=== PATIENT | female | born 1990 | race Caucasian/White ===

== ENCOUNTER 2023-12-28 10:55 | Outpatient (OUT) | payer OTHER, SELFPAY ==
--- NOTE | 2023-12-28 11:43 | XR_ITS ---
The [address] [address] Patient Name: TOMI ANTHONY MRN: [id number] date: 1990 Sex: F Assigned Patient Location: [facility] Current Patient Location: [facility] Accession/Order Number: [id number] Exam Date: 12/28/2023 11:48 Report Date: 12/28/2023 15:48 At the request of: LINDY LEE Procedure: XR chest 2V PROCEDURE: XR chest 2V DATE: 12/28/2023 11:48 AM EST COMPARISONS: None. CLINICAL INDICATION: 33 years Female PRE OP FINDINGS: The cardiomediastinal silhouette and pulmonary vasculature are within normal limits. The lungs are clear. There is no evidence of pleural effusion or pneumothorax. XR/XR chest 2V IMPRESSION: Chest radiograph is within normal limits. Electronically authenticated by: EMILY APARICIO Date: 12/28/2023 15:48
== END 2023-12-28 10:56 | disposition home or self-care (01) ==
LOC: PST 10:59
PROVIDERS: PCP Family Medicine; Visit Provider Obstetrics & Gynecology
DX: Z01.810 Encounter for preprocedural cardiovascular examination (principal); D58.9 Hereditary hemolytic anemia, unspecified; N94.6 Dysmenorrhea, unspecified
CPT/HCPCS: 71046

== ENCOUNTER 2024-01-04 09:00 | Day surgery (SDC) | payer OTHER, SELFPAY ==
[2023-12-28 11:48] VITALS: PULSE 70; TEMP 36.4; O2SAT 98
[2024-01-04] VITALS (10 sets, daily range): BP systolic 108–124; BP diastolic 64–78; PULSE 61–73; TEMP 35.4–36.6; O2SAT 96–100; BMI 29.6
[2024-01-04 09:11] LABS: Basophils Percent Auto 0.3 % (0.2-2.0); Eosinophils Absolute Auto 0.1 10^3/uL (0.0-0.7); Hematocrit 41.7 % (36.0-48.0); Hemoglobin 14.1 g/dL (12.0-16.0); Immature Granulocytes Abs Auto 0.01 10^3/uL (0.00-0.03); Immature Granulocytes Pct Auto 0.2 % (0.0-0.5); Lymphocytes Absolute Auto 1.9 10^3/uL (1.2-3.8); Lymphocytes Percent Auto 30.2 % (20.5-60.0); Mean Corpuscular HGB Conc 33.8 g/dL (29.9-35.2); Mean Corpuscular Hemoglobin 28.3 pg (26.7-34.0); Mean Corpuscular Volume 83.6 fL (81.0-99.0); Mean Platelet Volume 7.9 fL (9.5-13.5); Monocytes Absolute Auto 0.3 10^3/uL (0.3-0.8); Monocytes Percent Auto 5.5 % (1.7-12.0); Neutrophils Absolute Auto 3.9 10^3/uL (1.4-6.5); Neutrophils Percent Auto 62.8 % (43.0-75.0); Platelet Count 383 10^3/uL (150-450); Red Blood Count 4.99 10^6/uL (4.20-5.40); White Blood Count 6.2 10^3/uL (4.0-11.0)
--- OUTSIDE RECORDS SUMMARY | 2024-01-04 09:21 | XMS_ITS | CCD ---
Author Organization [facility] Care Team Providers Care Computer Support Analyst Name Role Phone CHERYL HERNANDEZ Admitting Unavailable CHERYL HERNANDEZ Attending Unavailable ROSIBEL BRUNER Primary Care Unavailable CHERYL HERNANDEZ Consulting Unavailable DO Ming Bradford Attending Provider MD Rosibel Bruner Primary Care Provider Sotoad, Imad Unavailable MD Rosibel Loaiza Primary Care Pr ovider MD Sj Villa Attending Provider Rosibel Loaiza Primary Care Un available Asaad, Imad Admitting Unavailable Asaad, Imad Attending Unavailable Rosibel Loaiza Primary Care Un available Asaad, Imad Admitting Unavailable Asaad, Imad Attending Unavailable Rosibel Bruner MD Primary Care Provider Luis Enrique Bhat CNM Unavailable Petra Mariee NP Unavailable PETRA MARIEE Attending UnavailLUIS ENRIQUE العراقي Attending Unavailable LUIS ENRIQUE BHAT Referring Unavailable LINDY BYNUM Attending Unavailable ASHLEE COURTNEY Attending Unavailable LINDY BYNUM Attending Unavailable ROSIBEL BRUNER Primary Care Unavailable Medications Current Medications Medication Drug Class(es) Dates Sig (Normalized) Sig (Original) acetaminophen 500 mg oral tablet (3 sources) Start: 09-28-2021 take 2 tablets by mouth every six hours Acetaminophen (Tylenol Extra Strength) 500 mg Tablet Active 1000 MG PO Q6H September 27, 2021 11:00pm acetaminophen 325 mg / oxyCODONE hydrochloride 5 mg oral tablet (3 sources) Opioid Agonist Start: 10-12-2021 take 2 tablets by mouth every four to six hours Oxycodone-Acetamino phen (Percocet) 5-325 mg tablet Active 2 TAB PO EVERY 4-6 HOURS 12 3 October 12, 2021 Start: 10-12-2021 take 2 tablets by mo [facility] every four to six hours Oxycodone-Acetaminophen (Percocet) 5-325 mg tablet Active 2 TAB PO EVERY 4-6 HOURS 12 3 October 12, 2021 [id number] 200 actuat albuterol 0.09 mg/actuat metered dose inhaler (4 sources) beta2-Adrenergic Agonist albuter ol HFA 90 mcg/act inhaler Inhale 2.5 mg every 6 (six) hours if needed. Active cimetidine 200 mg oral tablet (3 sources) Histamine-2 Receptor Antagonist Start: 09-29-19 Cimetidine Active 200 MG PO As Directed September 27, 2021 11:00pm 1-2x daily citalopram 10 mg oral tablet (5 sources) Serotonin Reuptake Inhibitor Start: 12-13-19 End: 01-12-20 24 take 1 tablet by mouth once daily citalopram (CeleXA) 10 MG tablet Indications: Anxiety, generalized (CMS/HCC) Take 1 tablet (10 mg) by mouth Daily 30 tablet 12/13/2023 01/12/2024 Active [facility] Citalopram Hydrobromide 20 MG 1 tablet Orally Once a day Active desogestrel 0.15 mg / ethinyl estradiol 0.03 mg oral tablet (4 sources) Progestin, Estrogen Start: 12-13-2023 End: 01-12-2024 desogestrel-ethinyl estradiol (Enskyce) 0.15-30 MG-MCG tablet Indications: Menorrhagia with regular cycle , Dysmenorrhea , Uterine leiomyoma, unspecified location Take 1 tablet by mouth Daily 30 tablet 12/13/2023 01/12/2024 Active dicyclomine hydrochloride 20 mg oral tablet (5 sources) Anticholinergic Start: 08-01-2023 take 1 tablet by mouth three times daily as needed dicyclomine (Bentyl) 20 MG tablet Indications: Irritable bowel syndrome with predominant constipation Take 1 tablet (20 mg) by mouth 3 (three) times a day as needed (IBS) 270 tablet 08/01/2023 Active Bentyl Active ethinyl estradiol 0.02 mg / levonorgestrel 0.1 mg oral tablet (5 sources) Progestin, Estrogen, Progestin-containing Intrauterine Device Start: 07-28-2023 End: 12-13-2023 take 0.1-20 tablets by mouth in the morning levonorgestrel-ethinyl estradiol (Aviane) 0.1-20 MG-MCG tablet Indications: Encounter for surveillance of contraceptive pills TAKE 1 TABLET BY MOUTH IN THE MORNING 28 tablet 3 07/28/2023 12/13/2023 Discontinued Start: 09-28-2021 take 1 tablet by reina th once daily at bedtime Levonorgestrel-Ethinyl Estrad (Vienva) 0.1-20 mg-mcg tablet Active 1 TAB PO Daily at bedtime September 27, 2021 11:00pm Start: 09-28-2021 take 1 tablet by reina th once daily at bedtime Levonorgestrel-Ethinyl Estrad (Vienva) 0.1-20 mg-mcg tablet Active 1 TAB PO Daily at bedtime September 28, 2021 12:00am fluticasone propionate 0.05 mg/actuat metered dose nasal spray (7 sources) Corticosteroid Start: 09-28-2021 take 1 spray(s) nasal route once daily Fluticasone Propionate Active 1 SPRAY INTRANASAL Daily September 27, 2021 11:00pm administer into each nostril fluticasone ([employer] Allergy Relief) 50 MCG/ACT nasal spray Flonase Active lansoprazole (1 source) Proton Pump Inhibitor Prevacid Active 24 hr metFORMIN hydrochloride 500 mg extended release oral tablet (4 sources) Biguanide Start: 11-02-19 take 1 tablet by mouth every twenty-four hours at mealtime metFORMIN XR (Glucophage-XR) 500 MG 24 hr tablet Indications: Insulin resistance Take 1 tablet (500 mg) by mouth in the evening. Take with meals Do not crush, chew, or split. 30 tablet 11 11/02/2023 Active omeprazole 40 mg delayed release oral capsule (6 sources) Proton Pump Inhibitor Start: 12-13-19 take 1 capsule by mouth before mealtime omeprazole (PriLOSEC) [address] capsule Indications: Gastroesophageal reflux disease without esophagitis Take 1 capsule (40 mg) by mouth in the morning. Take before meals. Do not crush or chew.. 90 capsule 12/13/2023 Active End: 12-13-2023 take 1 tablet by mouth before mealtime omeprazole OTC (PriLOSEC OTC) 20 MG EC tablet Take 20 mg by mouth in the morning. Take before meals. Do not crush, chew, or split.. 12/13/2023 Discontinued (Dose adjustment) Problems Active Problems Problem Classification Problem Date Documented Da te Episodic/Chronic Abdominal pain (2 sources) Abdominal pain; Translations: [Unspecified abdominal pain] Episodic Asthma (4 sources) Mild intermittent asthma; Translations: [Mild intermittent asthma, uncomplicated] Onset: 4 06-28-2023 Chronic Benign neoplasm of uterus (2 sources) Uterine leiomyoma; Translations: [Leiomyoma of uterus, unspecified] Onset: 4 12-18-2023 Episodic Esophageal disorders (7 sources) Gastroesophageal reflux disease without esophagitis; Translations: [Gastro-esophageal reflux disease without esophagitis] Onset: 4 12-13-2023 Chronic Immunizations and screening for infectious disease (6 sources) Contact with and (suspected) exposure to other viral communicable diseases; Translations: [Patient encounter status] Onset: 0 12-13-2023 Episodic Menstrual disorders (6 sources) Amenorrhea; Translations: [Amenorrhea, unspecified] Onset: 4 06-28-2023 Chronic Nonspecific chest pain (1 source) Chest pain, unspecified; Translations: [Chest pain, unspecified] Onset: 4 Episodic Other gastrointestinal disorders (5 sources) Irritable bowel syndrome characterized by constipation; Translations: [Irritable bowel syndrome with constipation] Onset: 4 06-28-2023 Chronic Other gastrointestinal disorders (2 sources) Irritable bowel syndrome with constipation; Translations: [Irritable bowel syndrome with constipation] Onset: 4 Chronic Other gastrointestinal disorders (1 source) Constipation, unspecified; Translations: [Constipation, unspecified] Onset: 4 Episodic Other gastrointestinal disorders (1 source) Heartburn; Translations: [Heartburn] Onset: 4 Episodic Other gastrointestinal disorders (1 source) Heartburn Onset: 4 Episodic Other upper respiratory disease (4 sources) Allergic rhinitis; Translations: [Allergic rhinitis, unspecified] Onset: 4 06-28-2023 Chronic Unclassified (1 source) CHEST PAIN, ACID REFLUX Onset: 4 Past or Other Problems Problem Classification Problem Date Documented Date Episodic/Chronic Biliary tract disease (7 sources) Biliary calculus; Translations: [Calculus of gallbladder without cholecystitis without obstruction] Onset: 06-28-2023 10-12-2021 Episodic Other upper respiratory infections (4 sources) Viral upper respiratory tract infection; Translations: [Acute upper respiratory infection, unspecified] Onset: 06-28-2023 06-28-2023 Episodic Previous (4 sources) Uterine scar from previous surgery affecting ; Translations: [Maternal care for low transverse scar from previous delivery] Onset: 06-14-2021 06-28-2023 Episodic Results Test Name Value Interpretation Reference Range Facility US PELVIC COMPLETE W/ TVon 0 09-25-2023 US PELVIC COMPLETE W/ TV EXAM: Pelvic Ultrasound, Transabdominal and Transvaginal: REASON FOR EXAM: Irregular bleeding. COMPARISON: None. TECHNIQUE: Grayscale and color Doppler ultrasound of the pelvis performed. Transabdominal and endovaginal ultrasound assessment. FINDINGS: Uterus/Endometrium: The uterus is anteverted and normal in size. The endometrium is not thickened and no fluid is identified in the canal. Ill-defined isoechoic lesion is seen in the anterior myometrium measuring roughly 1.2 x 1.3 x 0.7 cm in size. Cervix: Normal. Ovaries: Normal in size with normal vascularity by Doppler US. The ovaries could only be visualized by transabdominal scanning due to bowel gas. Peritoneum: No free fluid visualized. Measurements: Uterus: 7.70 x 4.72 x 2.98 cm EM: 0.46 cm Right Ovary: 2.43 x 2.24 x 1.57 cm Left Ovary: 1.87 x 1.64 x 1.85 cm IMPRESSION: Ill-defined isoechoic mass in the anterior uterine myometrium, 1.3 x 1.2 x 0.7 cm. This is most likely an incidental leiomyoma. No apparent endometrial thickening. *This report is generated using voice recognition reporting ([employer]). On occasion Power[employer]ribe erroneously drops words from the report or replaces the spoken word with similar sounding words. Please call with any questions/concerns regarding this report.* Dictated and transcribed 09/25/2023/jf This report has been electronically signed and approved by the interpreting radiologist. Electronically Signed Jason Randolph D.O. 2023-09-25 15:57:16 Normal Not Available HCG,Urineon 03-16-2023 Beta HCG ( test) Ql (U) Negative Normal [facility] Comment on above: Result Comment: PERF ORMED BY: [place] [address] PATHOLOGIST OIL PUMP STATION OPERATOR CHIEF DANNY OBRIEN M.D. Performed By: #### U HCG #### [address] Matthew 03-16-2023 L Specimen: [id number] Received: 03/16/23 Status: MARTHA Mead Num: [id number] Spec Type: Surgical Subm Dr: Sj Villa MD Tissues: A Colon Biopsy (RANDOM COLON BX) Procedures: HE/2, Gross/Micro L4 Age/ Patient Sex Location Account Attending Physician AnthonyKimberly / [id number] Sj Villa MD SPEC NUM: [id number] RECD: 03/16/23 STATUS: HUBERTBentley MEAD NUM: [id number] SELENE: 03/16/23- SUBM DR: Sj Villa MD ENTERED: 03/16/[address] [facility] [address]: SPEC TYPE: Surgical DEPT: S ORDERED: HE/2, Gross/Micro L4 ORDERED: HE/2, Gross/Micro L4 Pathological Diagnosis Random colon, biopsies: - Unremarkable colonic mucosa. - Negative for lymphocytic colitis, collagenous colitis and other forms of colitis. Clinical Information Abdominal pain, IBS with constipation, rule out microscopic colitis Gross Description Received in formalin labeled with the patient's name, date of and random colon are 3 garibay soft tissue fragments, 0.3 and 0.4 cm in greatest dimensions. Entirely submitted in one cassette labeled A1. CPT Codes 08803 -------- -------- Specimen: [id number] Received: 03/16/23 Status: MARTHA Kapadiaoseas Num: [id number] Spec Type: Surgical Subm Dr: Sj Villa MD Tissues: A Colon Biopsy (RANDOM COLON BX) Procedures: [place] GRAJEDA/Flavio L4 -------- Patient: Kimberly Anthony [id number] (Continued) -------- Signed (signature on file) Ana Moore MD 03/20/23 1052 [facility] Calprotectin, Fecalon 2023 Calprotectin, Fecal 33 Normal 0-120 [facility] Comment on above: Order Comment: Reaso n for Exam Irritable bowel syndrome with constipation Result Comment: Conc entration Interpretation Follow-Up < 5 - 50 ug/g Normal None >50 -120 ug/g Borderline Re-evaluate in 4-6 weeks >120 ug/g Abnormal Repeat as clinically indicated Performed at: - [facility] [id number] Employee Relation Manager: Charles Villarreal MD, Phone: [phone] PERFORMED BY: [place] [address] PATHOLOGIST OIL PUMP STATION OPERATOR CHIEF DANNY OBRIEN M.D. Performed By: #### T SH3 #### [address] #### CALPROTECT, LC CRP, CELIAC #### [facility] , Celiacon 03-11-2023 Deamidated Gliadin Abs, IgA 8 Normal 0-19 [facility] Comment on above: Order Comment: Reaso n for Exam Irritable bowel syndrome with constipation Result Comment: Nega tive 0 - 19 Weak Positive 20 - 30 Moderate to Strong Positive >30 Performed By: #### T SH3 #### [address] #### CALPROTECT, LC CRP, CELIAC #### [facility] , Deamidated Gliadin Abs, IgG 3 Normal 0-19 [facility] Comment on above: Order Comment: Reaso n for Exam Irritable bowel syndrome with constipation Result Comment: Nega tive 0 - 19 Weak Positive 20 - 30 Moderate to Strong Positive >30 Performed By: #### T SH3 #### [facility] [address] [place] [address] [place] #### CALPROTECT, LC CRP, CELIAC #### [facility] , Endomysial Antibody IgA Negative Normal Negative [facility] Comment on above: Order Comment: Reaso n for Exam Irritable bowel syndrome with constipation Performed By: #### T SH3 #### [address] #### CALPROTECT, LC CRP, CELIAC #### [facility] , Immunoglobulin A, Qn, Serum 133 mg/dL Normal 87-352 [facility] Comment on above: Order Comment: Reaso n for Exam Irritable bowel syndrome with constipation Result Comment: Perf ormed at: [address] [id number] Employee Relation Manager: Brian Maguire PhD, Phone: [phone] Performed By: #### T SH3 #### [address] #### CALPROTECT, LC CRP, CELIAC #### [facility] , T-Transglutaminase (tTG) IgA <2 Normal 0-3 [facility] Comment on above: Order Comment: Reaso n for Exam Irritable bowel syndrome with constipation Result Comment: Nega tive 0 - 3 Weak Positive 4 - 10 Positive >10 Tissue Transglutaminase (tTG) has been identified as the endomysial antigen. Studies have demonstr- ated that endomysial IgA antibodies have over 99% specificity for gluten sensitive enteropathy. Performed By: #### T SH3 #### [address] #### CALPROTECT, LC CRP, CELIAC #### [facility] , T-Transglutaminase (tTG) IgG 3 Normal 0-5 [facility] Comment on above: Order Comment: Reaso n for Exam Irritable bowel syndrome with constipation Result Comment: Nega tive 0 - 5 Weak Positive 6 - 9 Positive >9 Performed By: #### T SH3 #### [place] [address] [place] #### CALPROTECT, LC CRP, CELIAC #### [facility] , Lab Emiliano CRPon 03-11-2023 LC CRP, Quant 5 mg/L Normal 0-10 [facility] Comment on above: Order Comment: Reaso n for Exam Irritable bowel syndrome with constipation Result Comment: Perf ormed at: [facility] [address] [id number] Employee Relation Manager: Brian Maguire PhD, Phone: [phone] PERFORMED BY: [place] [address] PATHOLOGIST OIL PUMP STATION OPERATOR CHIEF DANNY OBRIEN M.D. Performed By: #### T SH3 #### [address] #### CALPROTECT, LC CRP, CELIAC #### [facility] , Thyroid Stimulating Hormoneo n 03-11-2023 TSH Qn 0.80 m[IU]/L Normal 0.45-5.33 [facility] Comment on above: Order Comment: Reaso n for Exam Irritable bowel syndrome with constipation Result Comment: PERF ORMED BY: [place] [address] PATHOLOGIST OIL PUMP STATION OPERATOR CHIEF DANNY OBRIEN M.D. Performed By: #### T SH3 #### [address] #### CALPROTECT, LC CRP, CELIAC #### [facility] , Thyrotropin [Units/volume] i n Serum or PlasmaOrdered By: Sj Villa on 03-11-2023 TSH Qn 0.80 m[IU]/L 0.45-5.33 [facility] XR Abdomen 2 Viewson 023 XR Abdomen 2 Views HISTORY: Abdominal pain, intermittent constipation FINDINGS: Large volume of colon stool, ascending, descending and sigmoid region. No mass effect or bowel obstruction. Cholecystectomy clips Unremarkable skeletal structures. IMPRESSION: 1. Large volume of colon stool, no obstruction or mass effect. Report reported and signed by Selvin Parish on 02/24/[address] [facility] Specialist HCG ( test) IAdandre d Ql (U)Ordered By: Dino Arreguin on 10-12-2021 HCG ( test) Ql (U) Negative [facility] Serum or plasma alkaline aadn sphatase measurement (enzymatic activity/volume)Ordered By: Ming Bradford on 10-12-2021 ALP [Catalytic activity/Vol] 60 U/L 32-92 [facility] Serum or plasma amylase alcon urement (enzymatic activity/volume)Ordered By: Mingalfonso Bradford on 10-12-2021 Amylase [Catalytic activity/Vol] 83 U/L 28-100 [facility] Serum or plasma total biliru bin measurement (mass/volume)Ordered By: Ming Bradford on 10-12-2021 Bilirubin [Mass/Vol] 0.4 mg/dL 0.3-1.2 [facility] COVID-19 Positive/NegativeOr dered By: Ming Bradford on 10-08-2021 SARS-CoV-2 (COVID-19) N gene MAME+probe Ql (Resp) Negative Negative [facility] Comment on above: Testing for SARS-CoV -2 by RT-PCR This test was developed and its performance characteristics determined by [employer] and validated at the [facility]. This test has not been FDA cleared or approved. This test has been authorized by FDA under an Emergency Use Authorization (EUA). This test has been validated in accordance with the FDA's Guidance Document (Policy for Diagnostics Testing in Laboratories Certified to Perform High Complexity Testing under CLIA prior to Emergency Use Authorization for Coronavirus Disease-2019 during the Public Health Emergency) issued on May 16, 2019. This test is only authorized for the duration of time the declaration that circumstances exist justifying the authorization of the emergency use of in vitro diagnostic tests for detection of SARS-CoV-2 virus and/or diagnosis of COVID-19 infection under section 564(b)(1) of the Act, 21 U.S.C. 360bbb-3(b)(1), unless the authorization is terminated or revoked sooner. US Gallbladderon 08-27-2021 US Gallbladder FINDINGS: Multiple dependent layering several mm shadowing gallstones, no positive sonographic Edwards's sign, pericholecystic fluid, or focal gallbladder wall thickening. No biliary ductal dilatation, normal common bile duct, 4 mm. Normal liver, pancreas, and right kidney. IMPRESSION: Cholelithiasis, no evidence of acute cholecystitis or biliary obstruction Report reported and signed by Selvin Parish on 08/27/2021 0934 Normal [facility] Clinical Data Programmer Q - STREPTOCOCCUS,GROUP B CU LTUREon 05-19-2021 STREPTOCOCCUS, GROUP B CULTURE SEE NOTE Normal [facility] Clinical Data Programmer Comment on above: Order Comment: [facility] Testing performed at: [facility], [address] [facility], [address] [facility] [facility], [place], [address], Neck Skewer: Freddie Burgess MD [facility] Collection Date/Time: [id number] [facility] Results Received Date/Time: [id number] [facility] Reported Date/Time: [id number] FASTING: NO Result Comment: STRE PTOCOCCUS, GROUP B CULTURE Micro Number: [id number] Test Status: Final Specimen Source: Vaginal/rectal Specimen Quality: Adequate Result: No group B Streptococcus isolated Note per CDC guidelines optimal recovery is achieved by swabbing both the lower vagina and rectum (through the anal sphincter). Performed By: #### 5 [id number] #### [facility] [address] [place] [address] US OB Growthon 04-07-2021 US OB Growth FINDINGS: Comparison made with prior ultrasound examination of February 01, 2021. A single, live intrauterine is present with normal cardiac rate of 138 beats per minute. Normal activity and amniotic fluid volume. Amniotic fluid index is 13 cm. Morphology is grossly normal. The cervix is long and closed, 5.8 cm. The placenta is posterior, Grade I, not associated with the cervical os. The current sonographic age is 30 weeks and 4 days, based on the following measurements: BPD 7.6 cm (30 weeks, 4 days) Head Circumference 28.1 cm (30 weeks, 5 days) Abdominal Circumference 26.5 cm (30 weeks, 4 days) Femur Length 5.9 cm (30 weeks, 4 days) Presentation Cephalic Placenta Posterior Grade I Weight (g) by Hucwyyzfbw57.7 % * These measurements result in an estimated date of delivery of June 12, 2021. The current estimated weight is 1604 grams (3 pounds, 9 ounces). IMPRESSION: 1. Single, live intrauterine , current sonographic age of 30 weeks and 4 days, with an estimated date of delivery of June 12, 2021. 2. Current estimated weight 1604 grams (3 pounds, 9 ounces) * Estimated Weight (g) by Percentile is based upon an accurate estimated age based on last menstrual period. Report reported and signed by Selvin Parish on 04/08/[address] [facility] Specialist Glucose Tolerance Test 3 Ani ramos 04-02-2021 FGLU 82 mg/dL Normal 65-[address] [facility] Specialist Comment on above: Result Comment: Acco rding to ADA: Fasting Glucoe Normal 65-99 mg/dl Prediabetes 100-125 mg/dl Diabetes >/= 126 Performed By: #### G TT3H #### [facility] [address] [place], [place] [id number] GLU1H 163 mg/dL Normal [facility] Specialist Comment on above: Performed By: #### G TT3H #### [facility] [address] [place], [place] [id number] GLU2H 112 mg/dL Normal [facility] Specialist Comment on above: Performed By: #### G TT3H #### [facility] [address] [place], [place] [id number] GLU3H 115 mg/dL Normal [facility] Specialist Comment on above: Performed By: #### G TT3H #### [facility] [address] [place], [place] [id number] Complete Blood Counton 03-31 Erythrocyte distribution width (RBC) [Ratio] 12.9 % Normal 11.0-15.[address] [facility] Specialist Comment on above: Performed By: #### G GLU, CBC #### [facility] [address] [place], [place] [id number] Hematocrit (Bld) [Volume fraction] 35.5 % Normal 35.0-47.[address] [facility] Specialist Comment on above: Performed By: #### G GLU, CBC #### [facility] [address] [place], [place] [id number] Hemoglobin (Bld) [Mass/Vol] 11.8 g/dL Normal 11.6-15.[address] [facility] Specialist Comment on above: Performed By: #### G GLU, CBC #### [facility] [address] [place], [place] [id number] MCH (RBC) [Entitic mass] 27.8 pg Normal 27.0-33.[address] [facility] Specialist Comment on above: Performed By: #### G GLU, CBC #### [facility] [address] [place], [place] [id number] MCHC (RBC) [Mass/Vol] 33.2 g/dL Normal 32.0-36.[address] [facility] Specialist Comment on above: Performed By: #### G GLU, CBC #### [facility] [address] [place], [place] [id number] MCV (RBC) [Entitic vol] 84 fL Normal 80-[address] [facility] Specialist Comment on above: Performed By: #### G GLU, CBC #### [facility] [address] [place], [place] [id number] Platelet mean volume (Bld) [Entitic vol] 8.60 fL Normal 7.50-12.50 [facility] Comment on above: Performed By: #### G GLU, CBC #### [facility] [address] [place], [place] [id number] Platelets (Bld) [#/Vol] 315 10*3/uL Normal 140-[address] [facility] Specialist Comment on above: Performed By: #### G GLU, CBC #### [facility] [address] [place], [place] [id number] RBC (Bld) [#/Vol] 4.24 10*6/uL Normal 3.90-5.20 [facility] Specialist Comment on above: Performed By: #### G GLU, CBC #### [facility] [address] [place], [place] [id number] RDW-SD 38.8 fL Normal 37.0-50.[address] [facility] Specialist Comment on above: Performed By: #### G GLU, CBC #### [facility] [address] [place], [place] [id number] WBC (Bld) [#/Vol] 9.1 10*3/uL Normal 3.8-11.0 [facility] Specialist Comment on above: Performed By: #### G GLU, CBC #### [facility] [address] [place], [place] [id number] Glucose - Gestational Screen on 03-31-2021 Glucose [Mass/Vol] 161 mg/dL High <135 Patricia brenner [place] Clinical Data Programmer Comment on above: Result Comment: A va lue of 135 mg/dL or greater indicates the need for a full glucose tolerance test performed in the fasting state to determine if the patient has gestational diabetes. Performed By: #### G GLU, CBC #### [facility] [address], [place] [id number] COVID-19 PCRon 09-25-2019 SARS-CoV-2, MAME Not Detected Normal Not Detected [facility] Comment on above: Result Comment: This test was developed and its performance characteristics determined by [employer]. This test has not been FDA cleared or approved. This test has been authorized by FDA under an Emergency Use Authorization (EUA). This test is only authorized for the duration of time the declaration that circumstances exist justifying the authorization of the emergency use of in vitro diagnostic tests for detection of SARS-CoV-2 virus and/or diagnosis of COVID-19 infection under section 564(b)(1) of the Act, 21 U.S.C. 360bbb-3(b)(1), unless the authorization is terminated or revoked sooner. When diagnostic testing is negative, the possibility of a false negative result should be considered in the context of a patient's recent exposures and the presence of clinical signs and symptoms consistent with COVID-19. An individual without symptoms of COVID-19 and who is not shedding SARS-CoV-2 virus would expect to have a negative (not detected) result in this assay. Performed By: #### C VDPCR #### [facility] [address], [place] [address] Luz Mccabe Vital Signs Date Time Vital Sign Value Performing Clinician Facility 12-18-2023 09:22-0500 Body mass index (BMI) [Ratio] 28.92 kg/m2 [employer] Work Phone: [facility] 12-18-2023 09:22-0500 Body weight 78.83 kg [employer] Work Phone: [facility] 12-18-2023 09:22-0500 Diastolic blood pressure 66 mm[Hg] Lindy [employer] Work Phone: [facility] 12-18-2023 09:22-0500 Systolic blood pressure 102 mm[Hg] Lindy Bynum DO Work Phone: [facility] 12-13-2023 13:03-0400 Body height 165.1 cm Ashlee Courtney [employer] Work Phone: [facility] 12-13-2023 13:03-0400 Body mass index (BMI) [Ratio] 28.46 kg/m2 Ashlee Courtney [employer] Work Phone: [facility] 12-13-2023 13:03-0400 Body weight 77.56 kg Ashlee Courtney [employer] Work Phone: [facility] 12-13-2023 13:03-0400 Diastolic blood pressure 70 mm[Hg] Ashlee Courtney [employer] Work Phone: [facility] 12-13-2023 13:03-0400 Heart rate 95 /min Ashlee Courtney [employer] Work Phone: [facility] 12-13-2023 13:03-0400 SaO2% (BldA) [Mass fraction] 98 % Ashlee Courtney [employer] Work Phone: [facility] 12-13-2023 13:03-0400 Systolic blood pressure 112 mm[Hg] Ashlee Courtney [employer] Work Phone: [facility] 02-15-2023 15:15-0500 Body height 162.56 cm Imad Asaad Other [employer] Other 02-15-2023 15:15-0500 Body mass index (BMI) [Ratio] 29.95 kg/m2 Imad Asaad Other [employer] Other 02-15-2023 15:15-0500 Body weight 79.15 kg Imad Asaad Other [employer] Other 02-15-2023 15:15-0500 Diastolic blood pressure 81 mm[Hg] Imad Asaad Other [facility] [employer] Other 02-15-2023 15:15-0500 Systolic blood pressure 114 mm[Hg] Imad Asaad Other [facility] [employer] Other 10-12-2021 15:00-0400 Diastolic blood pressure 80 mm[Hg] DO Ming Itzkowitz Work Phone: [facility] 10-12-2021 15:00-0400 Heart rate 74 /min DO Ming Itzkowitz Work Phone: [facility] 10-12-2021 15:00-0400 Respiratory rate 16 /min DO Ming Itzkowitz Work Phone: [facility] 10-12-2021 15:00-0400 SaO2% (BldA) [Mass fraction] 98 % DO Ming Itzkowitz Work Phone: [facility] 10-12-2021 15:00-0400 Systolic blood pressure 119 mm[Hg] DO Ming Itzkowitz Work Phone: [facility] 10-12-2021 13:17-0400 Body temperature 97.6 [degF] DO Ming Itzkowitz Work Phone: [facility] 10-12-2021 13:17-0400 Inhaled oxygen flow rate 6 L/min DO Ming Itzkowitz Work Phone: [facility] 10-12-2021 12:19-0400 Body height 162.56 cm DO Ming Itzkowitz Work Phone: [facility] 10-12-2021 12:19-0400 Body mass index (BMI) [Ratio] 29.3 kg/m2 DO Ming Itzkowitz Work Phone: [facility] 10-12-2021 12:19-0400 Body weight 77.56 kg DO Ming Bradford Work Phone: [facility] Encounters Encounter Date Encounter Type Care Provider Facility Start: 12-20-2023 End: 12-20-2023 Emergency department patient visit ROSIBEL BRUNER [facility] Start: 12-18-2023 End: 12-18-2023 [employer]amboo flowsheet Lindy Rosa DO Work Phone: [facility] Start: 12-18-2023 End: 12-18-2023 [employer]amboo flowsheet Lindy Rosa DO Work Phone: [facility] Start: 12-18-2023 End: 12-18-2023 Office outpatient visit 15 minutes Lindy Rosa DO Work Phone: [facility] Comment on above: Pre-op examination; Uterine leiomyoma, unspecified location; Dysmenorrhea Start: 12-18-2023 End: 12-18-2023 Preprocedural examination done Lindy Rosa DO Work Phone: [facility] Start: 12-18-2023 End: 12-18-2023 ambulatory LINDY ROSA Not Available Start: 12-13-2023 End: 12-13-2023 Office outpatient visit 25 minutes Ashlee Courtney [employer] Work Phone: [facility] Comment on above: Gastroesophageal ref lux disease without esophagitis (Primary Dx); Encounter for immunization Start: 12-13-2023 End: 12-13-2023 ambulatory ASHLEE COURTNEY Not Available Start: 10-09-2023 End: 10-09-2023 ambulatory LINDY ROSA Not Available Start: 09-25-2023 End: 09-25-2023 ambulatory LUIS ENRIQUE L FLORO Not Available Start: 09-20-2023 End: 09-20-2023 ambulatory LUIS ENRIQUE L FLORO Not Available Start: 07-11-2023 End: 07-11-2023 ambulatory PETRA OLIVARESPATRICK Not Available Start: 06-28-2023 End: 06-28-2023 ambulatory PETRA A MARIEE Not Available Start: 03-16-2023 End: 03-16-2023 ambulatory Rosibel Bruner Facility:[facility] Start: 03-11-2023 End: 03-11-2023 ambulatory Rosibel Bruner Facility:[facility] Start: 03-11-2023 End: 03-11-2023 ambulatory MD Rosibel Bruner Work Phone: [facility] Work Phone: Start: 03-11-2023 End: 03-11-2023 Patient encounter procedure MD Rosibel Bruner Work Phone: [facility] Work Phone: Start: 02-15-2023 End: 02-15-2023 ambulatory Imad Asaad Other [facility] [employer] Other Start: 02-15-2023 FQ visit new patient Imad Asaad [facility] Start: 02-15-2023 End: 02-15-2023 Patient encounter procedure MD Rosibel Bruner Work Phone: [facility] Work Phone: Start: 10-12-2021 End: 10-12-2021 Admission to same day surgery center DO Ming Itzkowitz Work Phone: [facility] Start: 10-08-2021 End: 10-08-2021 Patient encounter procedure DO Ming Itzkowitz Work Phone: [facility] Start: 09-28-2021 End: 09-28-2021 Departed Referred DO Ming Itzkowitz Work Phone: [facility] Start: 09-24-2019 End: 09-25-2019 Patient encounter procedure CHERYL HERNANDEZ Facility:[facility] Procedures Date Procedure Procedure Detail Performing Clinician Start: 08-15-2022 Microscopic observat ion [Identifier] in Cervix by Cyto stain Ashlee Courtney NP Work Phone: Start: 10-12-2021 Laparoscopic cholecystectomy DO Ming Bradford Work Phone: Plan of Treatment Date Care Activity Detail Author Start: 08-16-2027 Screening for malign ant neoplasm of cervix [facility] Start: 01-15-2024 End: 01-15-2024 Patient encounter procedure 01/15/2024 11:20 AM EST Office Visit [facility] [address] [place] [id number] Lindy Bynum, DO [address] [place] [address] [facility] Start: 12-18-2023 End: 12-18-2023 Patient encounter procedure [facility] Comment on above: Pre-op examination; Uterine leiomyoma, unspecified location; Dysmenorrhea Start: 03-11-2023 [facility] Start: 10-12-2021 [facility] Work Phone: Start: 10-12-2021 [facility] Work Phone: Start: 10-12-2021 Laparoscopic cholecystectomy OR Cholecystectomy Laparoscopic (Not Applicable) [facility] Start: 10-12-2021 End: 10-12-2021 Admission to same day surgery center Departed Surgical Day Care [facility] reactive protein [Mass/volume] in Serum or Plasma [facility] Endomysial antibody IgA level [facility] Gliadin peptide IgA Ab [Units/volume] in Serum [facility] Gliadin peptide IgG Ab [Units/volume] in Serum [facility] IgA [Mass/volume] in Serum or Plasma [facility] Patient referral [facility] Work Phone: Tissue transglutamin ase IgA Ab [Units/volume] in Serum [facility] Tissue transglutamin ase IgG Ab [Units/volume] in Serum [facility] Immunizations Immunization Date Immunization Notes Care Provider Malinda calderon 12-13-2023 influenza, seasonal, injectable, preservative free Ashlee Kampfer [employer] Work Phone: [facility] 11-15-2021 influenza, injectabl e, quadrivalent, preservative free Ashlee Kampfer [employer] Work Phone: [facility] 03-02-2021 tetanus toxoid, redu kelly diphtheria toxoid, and acellular pertussis vaccine, adsorbed Ashlee Kampfer [employer] Work Phone: [facility] 01-14-2021 COVID-19 mRNA, Comirnaty (Pfizer) DO [employer] Work Phone: [facility] 12-10-2020 influenza, injectabl e, quadrivalent, preservative free Ashlee Kampfer [employer] Work Phone: [facility] 06-02-2020 COVID-19 mRNA, Comirnaty (Pfizer) DO [employer] Work Phone: [facility] 05-12-2020 COVID-19 mRNA, Comirnaty (Pfizer) DO [employer] Work Phone: [facility] 11-27-2019 influenza, injectabl e, quadrivalent, preservative free Ashlee Kampfer [employer] Work Phone: [facility] 12-03-2018 tetanus toxoid, redu kelly diphtheria toxoid, and acellular pertussis vaccine, adsorbed Ashlee Kampfer [employer] Work Phone: [facility] 11-13-2018 influenza, injectabl e, quadrivalent, contains preservative Ashlee Kampfer [employer] Work Phone: [facility] 11-20-2015 influenza, injectabl e, quadrivalent, preservative free Ashlee Kampfer [employer] Work Phone: [facility] 12-22-2014 influenza, seasonal, injectable, preservative free Ashlee Kampfer [employer] Work Phone: [facility] 11-21-2013 influenza, seasonal, injectable, preservative free Ashlee Courtney [employer] Work Phone: [facility] 11-23-2012 influenza, seasonal, injectable, preservative free Ashlee Courtney [employer] Work Phone: [facility] 11-17-2011 influenza, seasonal, injectable, preservative free Ashlee Courtney [employer] Work Phone: [facility] 11-22-2010 influenza virus vaccine, whole virus Ashlee Courtney [employer] Work Phone: [facility] 08-25-2010 diphtheria, tetanus toxoids and acellular pertussis vaccine Ashlee Frazierfer [employer] Work Phone: [facility] 08-25-2010 tetanus toxoid, redu kelly diphtheria toxoid, and acellular pertussis vaccine, adsorbed Ashlee Courtney [employer] Work Phone: [facility] 02-09-2009 HPV, unspecified formulation Ashlee Courtney [employer] Work Phone: [facility] 10-10-2008 HPV, unspecified formulation Ashlee Courtney [employer] Work Phone: [facility] 08-11-2008 HPV, unspecified formulation Ashlee Courtney [employer] Work Phone: [facility] 08-31-2007 meningococcal ACWY vaccine, unspecified formulation Ashlee Courtney [employer] Work Phone: [facility] 09-19-2005 diphtheria, tetanus toxoids and pertussis vaccine Ashlee Courtney [employer] Work Phone: [facility] 07-15-1997 diphtheria, tetanus toxoids and pertussis vaccine Ashlee Courtney [employer] Work Phone: [facility] 07-15-1997 measles, mumps and rubella virus vaccine Ashlee Courtney [employer] Work Phone: [facility] 07-15-1997 poliovirus vaccine, unspecified formulation Ashlee Courtney [employer] Work Phone: [facility] 07-15-1997 varicella virus vaccine Vicki Chengjovanileonard [employer] Work Phone: [facility] 11-05-1993 diphtheria, tetanus toxoids and pertussis vaccine Ashlee Courtney [employer] Work Phone: [facility] 11-05-1993 poliovirus vaccine, unspecified formulation Ashlee Courtney [employer] Work Phone: [facility] 06-11-1993 haemophilus influenz ae type b vaccine, conjugate unspecified formulation Ashlee Courtney [employer] Work Phone: [facility] 06-11-1993 measles, mumps and rubella virus vaccine Ashlee Courtney [employer] Work Phone: [facility] 1992 hepatitis B vaccine, pediatric or pediatric/adolescent dosage Ashlee Courtney [employer] Work Phone: [facility] 1992 diphtheria, tetanus toxoids and pertussis vaccine Ashlee Courtney [employer] Work Phone: [facility] 1992 haemophilus influenz ae type b vaccine, conjugate unspecified formulation Ashlee Courtney [employer] Work Phone: [facility] 1992 diphtheria, tetanus toxoids and pertussis vaccine Ashlee Courtney [employer] Work Phone: [facility] 1992 haemophilus influenz ae type b vaccine, conjugate unspecified formulation Ashlee Courtney [employer] Work Phone: [facility] 1992 hepatitis B vaccine, pediatric or pediatric/adolescent dosage Ashlee Courtney [employer] Work Phone: [facility] 1992 poliovirus vaccine, unspecified formulation Ashlee Courtney [employer] Work Phone: [facility] 1992 diphtheria, tetanus toxoids and pertussis vaccine Ashlee Courtney [employer] Work Phone: [facility] 1992 haemophilus influenz ae type b vaccine, conjugate unspecified formulation Ashlee Courtney [employer] Work Phone: [facility] 1992 hepatitis B vaccine, pediatric or pediatric/adolescent dosage Ashlee Courtney [employer] Work Phone: [facility] 1992 poliovirus vaccine, unspecified formulation Ashlee Courtney NP Work Phone: [facility] Payers Date Payer Category Payer Unknown [id number] 2023 Self-pay 2022 Private Health Insurance [employer] Member Subscriber Plan / Payer (Effective 2022-Present) Name: Kimberly Anthony Relation to Subscriber: Self Name: Kimberly Anthony Payer ID: Not on file Type: Not on file Address: [place] [id number] 2022 Unknown [id number] 1992 Unknown [id number]. 593 1992 Unknown [id number]. 9 1992 Unknown [id number] [id number]. 9 1992 Unknown [id number] [id number]. 9 1992 Unknown [id number] [id number]. 9 1992 Unknown [id number]. 1259 1992 Unknown [id number] [id number]. 9 1992 Unknown [id number] [id number]. 1259 1992 Unknown [id number]. 1286 1959 Unknown [id number] Unknown [employer] BC/BS [id number] Unknown [id number] 531 Unknown [id number]. 531 Social History Date Type Detail Facility Start: 10-12-2021 End: 07-28-2022 Tobacco smoking status NHIS Never smoked tobacco (finding) [facility] Start: 1990 Sex Assigned At Female [facility] Start: 07-11-2023 End: 12-13-2023 Sex Assigned At [facility] Start: 07-28-2022 Tobacco use and exposure Smokeless tobacco non-user [facility] Start: 12-13-2023 Alcoholic beverage intake Current drinker of alcohol (finding) [facility] Start: 07-11-2023 End: 12-13-2023 Alcoholic beverage intake [facility] Do you belong to any clubs or organizations such as yazdanism groups, unions, fraternal or athletic groups, or school groups? No [facility] How often do you att end meetings of the clubs or organizations you belong to? Patient declined [facility] Are you now , , , , never or living with a partner? [facility] How often to you hav e a drink containing alcohol? 2-4 times a month [facility] How many standard drinks containing alcohol do you have on a typical day? 1 or 2 [facility] How often do you hav e 6 or more drinks on 1 occasion? Never [facility] How hard is it for y ou to pay for the very basics like food, housing, medical care, and heating Not very hard [facility] Do you feel stress - tense, restless, nervous, or anxious, or unable to sleep at night because your mind is troubled all the time - these days [OSQ] To some extent [facility] (I/We) worried wheth er (my/our) food would run out before (I/we) got money to buy more. Never true [facility] Start: 06-28-2023 Alcohol Comment Caffeine: 1-2 cups/day coffee [facility] Start: 04-27-2022 Gender identity Identifies as female gender (finding) [facility] NEGATED: Highlighted rowStart: NAMF History of tobacco use Passive smoker [facility] Goals Date Patient Goal Desired Activity /State History of Present illness Narrative 12-18-2023 Valentina Cagle - 12/18/2023 9:20 AM EST Note Date & Type Note Facility 12-18-2023 History of Presen t illness Narrative Reason for Appointment: Patient ID: Kimberly Anthony is a 33 y.o. female who presents for Pre-op Visit Patient presents today for Pre Op appointment. Patient is scheduled to undergo D&C Hysteroscopy, possible Myosure on 01/04/[address] yBnum at [facility]. MEDICATIONS Current Outpatient Medications Medication Instructions albuterol HFA 2.5 mg, Every 6 hours PRN citalopram (CELEXA) 10 mg, Oral, Daily desogestrel-ethinyl estradiol (Enskyce) 0.15-30 MG-MCG tablet 1 tablet, Oral, Daily dicyclomine (BENTYL) 20 mg, Oral, 3 times daily PRN fluticasone (Flonase Allergy Relief) 50 MCG/ACT nasal spray Flonase metFORMIN XR (GLUCOPHAGE-XR) 500 mg, Oral, Daily with evening meal, Do not crush, chew, or split. omeprazole (PRILOSEC) 40 mg, Oral, Daily before breakfast, Do not crush or chew. ALLERGIES No Known Allergies PROBLEMS Active Ambulatory Problems Diagnosis Date Noted Allergic rhinitis due to allergen 06/28/2023 Amenorrhea 06/28/2023 Calculus of gallbladder without cholecystitis without obstruction 06/28/2023 Encounter for maternal care for low transverse scar from repeat delivery 06/14/2021 Gastroesophageal reflux disease without esophagitis 06/28/2023 Irritable bowel syndrome with predominant constipation 06/28/2023 Mild intermittent asthma without complication (CMS/HCC) 06/28/2023 Viral upper respiratory illness 06/28/2023 Resolved Ambulatory Problems Diagnosis Date Noted No Resolved Ambulatory Problems Past Medical History: Diagnosis Date Asthma (CMS/HCC) Cholelithiasis Family history of cancer Headache HISTORY PAST MEDICAL HISTORY SOCIAL HISTORY Past Medical History: Diagnosis Date Asthma (CMS/HCC) Cholelithiasis Family history of cancer Headache Social History Tobacco Use Smoking status: Never Passive exposure: Never Smokeless tobacco: Never Vaping Use Vaping status: Never Used Substance Use Topics Alcohol use: Yes Alcohol/week: 1.0 standard drink of alcohol Types: 1 Standard drinks or equivalent per week Comment: Caffeine: 1-2 cups/day coffee Drug use: Never FAMILY HISTORY Family History Problem Relation Name Age of Onset Hypertension Mother Irritable bowel syndrome Mother Other (colostomy bag) Father d/t bad scarring on his colonfall 2020 Charlton's palsy Father Diabetes Father Diverticulitis Father No Known Problems Brother Coronary artery disease Paternal Grandmother Breast cancer Neg Hx Colon cancer Neg Hx Ovarian cancer Neg Hx SURGICAL HISTORY Past Surgical History: Procedure Laterality Date SECTION, LOW TRANSVERSE 02/11/2019 SECTION, LOW TRANSVERSE 06/11/2021 PAP SMEAR 11/2016 PA LAP,CHOLECYSTECTOMY 10/12/2021 TONSILLECTOMY WISDOM TOOTH EXTRACTION 2012 wisdom teeth REVIEW OF SYSTEMS Review of Systems: Review of Systems Constitutional: Negative. HENT: Negative. Eyes: Negative. Respiratory: Negative. Cardiovascular: Negative. Gastrointestinal: Negative. Genitourinary: Negative. Musculoskeletal: Negative. Skin: Negative. Neurological: Negative. All other systems reviewed and are negative. Hematological: Negative. Endocrine: Negative. Allergic/Immunologic: Negative. OBJECTIVE Objective: Physical Exam Constitutional: Appearance: Normal appearance. She is well-developed. Cardiovascular: Rate and Rhythm: Normal rate and regular rhythm. Pulmonary: Effort: Pulmonary effort is normal. Breath sounds: Normal breath sounds. Abdominal: General: Bowel sounds are normal. There is no distension. Palpations: Abdomen is soft. Tenderness: There is no abdominal tenderness. There is no guarding or rebound. Musculoskeletal: General: No swelling. Normal range of motion. Right lower leg: No edema. Left lower leg: No edema. Neurological: Mental Status: She is alert and oriented to person, place, and time. Skin: General: Skin is warm and dry. Psychiatric: Mood and Affect: Mood normal. Behavior: Behavior normal. Vitals and nursing note reviewed. Exam conducted with a applications manager present. Vitals: Estimated body mass index is 28.46 kg/m as calculated from the following: Height as of 12/13/23: 5' 5 . Weight as of 12/13/23: 171 lb. BP: No LMP recorded. ASSESSMENT & PLAN ICD-10-CM 1. Pre-op examination Z01.818 2. Uterine leiomyoma, unspecified location D25.9 3. Dysmenorrhea N94.6 Pre Op: Patient is doing well but has complaints of uterine fibroid. I have discussed conservative management vs. surgical management with the patient in detail and patient desires surgical management at this time. Patient will undergo D&C Hysteroscopy, possible Myosure on 01/04/2024. Surgical consents were signed, mmc was reviewed, and patient is to proceed to [facility] OR. Follow Up: Patient is to follow up between 1-2 weeks post operative to assess proper healing and recovery from procedure. Documented by Sondra Pringle LPN on behalf of: Lindy Bnyum DO documented in this encounter [facility] History of Present illness Narrative 12-13-2023 Ashlee Courtney NP - 12/13/2023 1:00 PM EDT Note Date & Type Note Facility 12-13-2023 History of Presen t illness Narrative Images from the original note were not included. Kimberly Anthony is a 33 y.o. female presents with chief complaint of Heartburn (Currently taking prilosec otc 20mg daily. Having some vomiting. ) HPI: HPI History of Present Illness The patient presents for evaluation of acid reflux. She has been managing her acid reflux with Prilosec, which has generally been effective. However, in recent months, she has experienced a resurgence of symptoms, including episodes of throat burning at night. She has been dealing with these symptoms for a few months. She reports that jwos-[id number] antacids like Tums provide some relief but do not completely alleviate her symptoms. She is currently on a 20 mg dose of Prilosec. She has tried other kuia-qkc-[id number] medications, including Prevacid and Tagamet, the latter of which she used during and found somewhat helpful. However, she feels that these medications have lost their effectiveness. She has identified certain foods, such as tomatoes and sauces, as triggers and has been avoiding them. Despite these efforts, she feels that almost any food exacerbates her symptoms. She has also reduced her caffeine intake. She reports no presence of blood, chest pain, or shortness of breath, but does mention occasional mid-chest discomfort. Her symptoms do not worsen when lying down. She also reports no diarrhea or abdominal pain. SUBJECTIVE: MEDICATIONS: Current Outpatient Medications Medication Instructions albuterol HFA 2.5 mg, Every 6 hours PRN citalopram (CELEXA) 10 mg, Oral, Daily desogestrel-ethinyl estradiol (Enskyce) 0.15-30 MG-MCG tablet 1 tablet, Oral, Daily dicyclomine (BENTYL) 20 mg, Oral, 3 times daily PRN fluticasone (Flonase Allergy Relief) 50 MCG/ACT nasal spray Flonase metFORMIN XR (GLUCOPHAGE-XR) 500 mg, Oral, Daily with evening meal, Do not crush, chew, or split. omeprazole OTC (PRILOSEC OTC) 20 mg, Daily before breakfast REVIEW OF SYMPTOMS: Review of Systems OBJECTIVE: Visit Vitals BP 112/70 (BP Location: Right arm, Patient Position: Sitting, BP Cuff Size: Large adult) Pulse 95 Ht 5' 5 Wt 171 lb SpO2 98% BMI 28.46 kg/m OB Status Having periods Smoking Status Never BSA 1.89 m Physical Exam Vitals reviewed. Constitutional: Appearance: Normal appearance. HENT: Head: Normocephalic and atraumatic. Nose: Nose normal. Mouth/Throat: Mouth: Mucous membranes are moist. Eyes: Pupils: Pupils are equal, round, and reactive to light. Cardiovascular: Rate and Rhythm: Normal rate and regular rhythm. Pulses: Normal pulses. Heart sounds: Normal heart sounds. Pulmonary: Effort: Pulmonary effort is normal. Breath sounds: Normal breath sounds. Abdominal: General: Bowel sounds are normal. Palpations: Abdomen is soft. Tenderness: There is no abdominal tenderness. Musculoskeletal: Cervical back: Normal range of motion and neck supple. Right lower leg: No edema. Left lower leg: No edema. Skin: General: Skin is warm and dry. Capillary Refill: Capillary refill takes less than 2 seconds. Findings: No rash. Neurological: General: No focal deficit present. Mental Status: She is alert and oriented to person, place, and time. ASSESSMENT AND PLAN: Assessment/Plan Diagnoses and all orders for this visit: Gastroesophageal reflux disease without esophagitis - omeprazole (PriLOSEC) [address] capsule; Take 1 capsule (40 mg) by mouth in the morning. Take before meals. Do not crush or chew.. -Increase omeprazole to 40mg daily. Avoid triggers such as caffeine, ETOH, spicy foods. Avoid supine position 2-3 hours after eating. Elevate HOB. Reassess in 3-4 weeks, if no improvement consider checking for H.pylori vs. GI referral. Encounter for immunization - Flu vaccine greater than or equal to 3 years old, PF IM ([id number]) documented in this encounter [facility] Evaluation note 02-15-2023 Note Date & Type Note Facility 02-15-2023 Evaluation note Encounter Date Diagnosis Assessment Notes Feb, Irritable bowel syndrome with constipation (ICD-10 - K58.1) Feb, Abdominal pain (ICD-10 - R10.9) [facility] Other Evaluation note Note Date & Type Note Facility Evaluation note [facility]: Evaluation note Note Date & Type Note Facility Evaluation note Diagnosis Gastroesophageal reflux disease without esophagitis- Primary Esophageal reflux Encounter for immunization documented in this encounter [facility] Evaluation note Note Date & Type Note Facility Evaluation note Diagnosis Pre-op examination Uterine leiomyoma, unspecified location Dysmenorrhea documented in this encounter [facility] History general Narrative - Reported Note Date & Type Note Facility History general Narrative - Reported Type Surgical History gallbladder removal Surgical History C section Hospitalization History see above [facility] Other Summary Purpose Family History No Family History Records Found Relationship Condition Age at Onset Recorded Date/T elena father Sleep apnea Unknown History of colon surgery Unknown Diverticulitis Unknown Presence of colostomy Unknown Not Specified Gastroesophageal reflux disease Unknown Hypertension Unknown brother Asthma Unknown Advance Directives No Advanced Directives Records Found Advance Directive Response Recorded Date/ Time Advance Directives No September 21 12:20pm Advance Directive Response Recorded Date/ Time Advance Directives No September 21 11:20am Chief Complaint and Reason for Visit Chief Complaint Cholelithiasis Cholelithiasis Cholelithiasis Chief Complaint Ibs-C//Abd Pain//Ref Rosibel Bruner k58.1 Additional Source Comments INFORMATION SOURCE (unrecogn ized section and content) DATE CREATED AUTHOR 10/02/2019 [facility] DATE CREATED AUTHOR AUTHOR'S ORGANIZ ATION 02/24/2022 [facility] Special[facility] DATE CREATED AUTHOR AUTHOR'S ORGANIZ ATION 06/09/2023 [facility] DATE CREATED AUTHOR AUTHOR'S ORGANIZ ATION 12/19/2023 [facility] EPIC DATE CREATED AUTHOR AUTHOR'S ORGANIZ ATION 12/22/[address] [facility] Care Teams (unrecognized sec tion and content) Team Status: Inactive Member Role Status Dates Ming Bradford DO Attending Provider Active Rosibel Bruner MD Primary Care Provider Active Team Status: Active Member Role Status Dates Rosibel Bruner MD Primary Care Provider Active Team Status: Active Member Role Status Dates Rosibel Bruner MD Primary Care Provide r Active Team Status: Inactive Member Role Status Dates Sj Villa MD Attending Provider Active Start: February 15, 2023 End: February 15, 2023 Team Status: Inactive Member Role Status Dates Rosibel Bruner MD Primary Care Provider Active Start: February End: March 11, 2023 Sj Villa MD Attending Provider Active Start: March 11, 2023 End: March 11, 2023 Computer Support Analyst Relationship Specialty Start Date End Date Rosibel Bruner MD [address] [facility] [place], [place] [id number] PCP - General Family Medicine 07/28/22 Petra Mariee NP [address] [facility] [place] [id number] PCP - [facility] 10/14/22 02/12/99 Luis Enrique Bhat CNM [address] [facility] [place], [place] [id number] Obstetrics and Gynecology 07/28/22 Computer Support Analyst Relationship Specialty Start Date End Date Rosibel Bruner MD [address] [facility] [place] [address] PCP - General Family Medicine 07/28/22 Petra Mariee NP [address] [facility] [place] [address] PCP - [facility] 10/14/22 02/12/99 Luis Enrique Bhat CNM [address] [facility] [place] [address] Obstetrics and Gynecology 07/28/22 Computer Support Analyst Relationship Specialty Start Date End Date Rosibel Bruner MD [address] [facility] [place] [address] PCP - General Family Medicine 07/28/22 Petra Mariee NP [address] [facility] [place] [address] PCP - [facility] 10/14/22 02/12/99 Luis Enrique Bhat CNM [address] [facility] [place] [address] Obstetrics and Gynecology 07/28/22 REASON FOR VISIT (unrecogniz ed section and content) Reason Comments Heartburn Currently taking claudia losec otc 20mg daily. Having some vomiting. Reason Comments Pre-op Visit Goals (unrecognized section and content) Goals may be documented in a n alternate section FOR RECORDS PERTAINING TO PATIENTS WHO ARE OR HAVE BEEN ENROLLED IN A CHEMICAL DEPENDENCY/SUBSTANCEABUSE PROGRAM, SOME INFORMATION MAY BE OMITTED. This clinical summary was aggregated from multiple sources. Caution should be exercised in using it in the provision of clinical care. This summary normalizes information from multiple sources, and as a consequence, information in this document may materially change the coding, format and clinical context of patient data. In addition, data may be omitted in some cases. CLINICAL DECISIONS SHOULD BE BASED ON THE PRIMARY CLINICAL RECORDS. [facility] [employer] [facility]. provides no warranty or guarantee of the accuracy or completeness of information in this document.
[2024-01-04 09:34] LABS: HCG Quantitative <1 mIU/mL
[2024-01-04] MEDS: LACTATED RINGER'S SOLUTION 1,000 ML 50 ML IV (09:36)
--- NOTE | 2024-01-04 12:10 | PM.ONB ---
Brief Operative Note Date of procedure: 01/04/24 Pre-op diagnosis general: menorrhagia Post-op diagnosis: same as pre-op Procedure: NAME OF PROCEDURE: [d&c hysteroscopy] PROCEDURE: The patient was taken back to the Operating Room where she was prepped and draped in normal sterile fashion after being placed under general anesthesia without difficulty. She was also placed in the dorsal lithotomy position. A weighted speculum was placed in the patient?s vagina. The anterior lip of the cervix was identified and grasped with a single tooth tenaculum. The patient?s uterus was then sounded roughly to [?8 ] cm. The patient was then gently dilated using Hegar dilators. The hysteroscope was passed through the patient?s cervix into the uterus. Both ostia were identified. Normal appearing endometrium. No gross evidence of polyps, fibroids or malignancy. The hysteroscope was then removed from the patient's uterus.? At that point, gentle curettage was performed until a gritty texture was noted. The endometrial curettings were sent out to pathology.? The single tooth tenaculum was then removed from the patient's anterior lip of the cervix where excellent hemostasis was noted. Anesthesia: MAC Surgeon: Rafat Bynum Estimated blood loss (mL): 5 Pathology: other (endometrial currettings) Condition: stable Disposition: PACU Urinary Catheter Management Urinary Catheter Management Urethral: Cath placed during this visit: no
== END 2024-01-04 13:20 | disposition home or self-care (01) ==
PROVIDERS: PCP Family Medicine; Visit Provider Obstetrics & Gynecology
PROC: (CPT 952; principal; 2024-01-04 10:10)
DX: N92.0 Excessive and frequent menstruation with regular cycle (principal); N84.0 Polyp of corpus uteri
CPT/HCPCS: 58558; 36415; 84702; 85025; J1100; J2250; J2405; J2704; J3010

== ENCOUNTER 2024-01-15 20:08 | Outpatient (REF) | payer OTHER, SELFPAY ==
--- OUTSIDE RECORDS SUMMARY | 2024-01-15 20:26 | XMS_ITS | CCD ---
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 Name Role Phone CHERYL HERNANDEZ Admitting Unavailable CHERYL HERNANDEZ Attending Unavailable ROSIBEL BRUNER Primary Care Unavailable CHERYL HERNANDEZ Consulting Unavailable DO Ming Bradford Attending Provider [phone] MD Rosibel Bruner Primary Care Provider Asaad, Imad Unavailable MD Rosibel Loaiza Primary Care Pr ovider MD Daisy Imduran Attending Provider Rosibel Bruner MD Primary Care Provider Luis Enrique Bhat CNM Unavailable [phone] Petra Mariee NP Unavailable PETRA MARIEE Attending Unavailab LUIS ENRIQUE Mcdaniel Attending Unavailable LUIS ENRIQUE BHAT Referring Unavailable LINDY BYNUM Attending Unavailable ASHLEE COURTNEY Attending Unavailable LINDY BYNUM Attending Unavailable ROSIBEL BRUNER Primary Care Unavailable Asaad, Imad Admitting Unavailable Asaad, Imad Attending Unavailable Rosibel Loaiza Primary Care Un available Lindy Bynum Attending Unavailable Rosibel Loaiza Primary Care Un available Lindy Bynum Admitting Unavailable Asaad, Imad Admitting Unavailable Asaad, Imad Attending Unavailable Rosibel Loaiza Primary Care Un available Medications Current Medications Medication Drug Class(es) Dates [...] 2 TAB PO EVERY 4-6 HOURS 12 October 12, 2021 Start: 10-12-2021 take 2 tablets by mo [facility] every four to six hours Oxycodone-Acetaminophen (Percocet) 5-325 mg tablet Active 2 TAB PO EVERY 4-6 HOURS 12 October 12, 2021 [id number] 200 actuat albuterol 0.09 mg/actuat metered dose inhaler (6 sources) beta2-Adrenergic Agonist albuter ol HFA 90 mcg/act inhaler Inhale 2.5 mg every 6 (six) hours if needed. Active aluminum hydroxide 160 mg / magnesium carbonate 105 mg chewable tablet (2 sources) Start: 12-20-19 take 1 tablet by mouth every six hours as needed Alum Hydroxide-Mag Carbonate 160-105 MG chewable tablet Chew 1 tablet every 6 (six) hours if needed 12/20/2023 Active cimetidine 200 mg oral tablet (3 sources) Histamine-2 Receptor Antagonist Start: 09-29-19 Cimetidine Active 200 MG PO As Directed September 27, 2021 11:00pm 1-2x daily citalopram 10 mg oral tablet (7 sources) Serotonin Reuptake Inhibitor Start: 12-13-19 End: 01-12-20 citalopram (CeleXA) 10 MG tablet Indications: Anxiety, generalized (CMS/HCC) TAKE 1 TABLET DAILY 30 tablet 01/02/2024 Active take 1 tablet by reina every twenty-four hours Citalopram Hydrobromide 20 MG 1 tablet Orally Once a day Active desogestrel 0.15 mg / ethinyl estradiol 0.03 mg oral tablet (6 sources) Progestin, Estrogen Start: 12-13-2023 End: 01-12-2024 desogestrel-ethinyl estradiol (Enskyce) 0.15-30 MG-MCG tablet Indications: Menorrhagia with regular cycle , Dysmenorrhea , Uterine leiomyoma, unspecified location Take 1 tablet by mouth Daily 30 tablet 12/13/2023 Active dicyclomine hydrochloride 20 mg oral tablet (7 sources) Anticholinergic Start: 08-01-2023 take 1 tablet [...] propionate 0.05 mg/actuat metered dose nasal spray (9 sources) Corticosteroid Start: 09-28-2021 take 1 spray(s) nasal route once daily Fluticasone Propionate Active 1 SPRAY INTRANASAL Daily September 27, 2021 11:00pm administer into each nostril fluticasone (Alan nase Allergy Relief) 50 MCG/ACT nasal spray Flonase Active lansoprazole (1 source) Proton Pump Inhibitor Prevacid Active 24 hr metFORMIN hydrochloride 500 mg extended release oral tablet (6 sources) Biguanide Start: 11-02-19 take 1 tablet by mouth every twenty-four hours at mealtime metFORMIN XR (Glucophage-XR) 500 MG 24 hr tablet Indications: Insulin resistance Take 1 tablet (500 mg) by mouth in the evening. Take with meals Do not crush, chew, or split. 30 tablet 11 11/02/2023 Active omeprazole 40 mg delayed release oral capsule (8 sources) Proton Pump Inhibitor Start: 12-13-19 take [...] pain; Translations: [Unspecified abdominal pain] Episodic Asthma (6 sources) Mild intermittent asthma; Translations: [Mild intermittent asthma, uncomplicated] Onset: 4 06-28-2023 Chronic Benign neoplasm of uterus (4 sources) Uterine leiomyoma; Translations: [Leiomyoma of uterus, unspecified] Onset: 4 12-18-2023 Episodic Esophageal disorders (9 sources) Gastroesophageal reflux disease without esophagitis; Translations: [Gastro-esophageal reflux disease without esophagitis] Onset: 4 12-13-2023 Chronic Immunizations and screening for infectious disease (6 sources) Contact with and (suspected) exposure to other viral communicable diseases; Translations: [Patient encounter status] Onset: 0 12-13-2023 Episodic Menstrual disorders (10 sources) Amenorrhea; Translations: [Amenorrhea, unspecified] Onset: 4 06-28-2023 Chronic Nonspecific chest pain (1 source) Chest pain, unspecified; Translations: [Chest pain, unspecified] Onset: 4 Episodic Other gastrointestinal disorders (7 sources) Irritable bowel syndrome characterized by constipation; Translations: [Irritable bowel syndrome with constipation] Onset: 4 06-28-2023 Chronic Other gastrointestinal disorders (2 sources) Irritable bowel syndrome with constipation; Translations: [Irritable bowel syndrome with constipation] Onset: 4 Chronic Other gastrointestinal disorders (1 source) Heartburn; Translations: [Heartburn] Onset: 4 Episodic Other gastrointestinal disorders (1 source) Heartburn Onset: 4 Episodic Other upper respiratory disease (6 sources) Allergic rhinitis; Translations: [Allergic rhinitis, unspecified] Onset: 4 06-28-2023 Chronic Unclassified (1 source) CHEST PAIN, ACID REFLUX Onset: 4 Past or Other Problems Problem Classification Problem Date Documented Da te Episodic/Chronic Biliary tract disease (9 sources) Biliary calculus; Translations: [Calculus of gallbladder without cholecystitis without obstruction] Onset: 06-28-2023 10-12-2021 Episodic Other gastrointestinal disorders (1 source) Constipation, unspecified; Translations: [Constipation, unspecified] Onset: 03-16-2023 Episodic Other upper respiratory infections (6 sources) Viral upper respiratory tract infection; Translations: [Acute upper respiratory infection, unspecified] Onset: 06-28-2023 06-28-2023 Episodic Previous (6 sources) Uterine scar from previous surgery affecting ; Translations: [Maternal care for low transverse scar from previous delivery] Onset: 06-14-2021 06-28-2023 Episodic Results Test Name Value Interpretation Reference Range Facility ALL CBC WITH AUTO DIFFon BASOPHILS ABSOLUTE AUTO 0 [facility] Basophils/100 WBC (Bld) 0.3 % 0.2 - 2.0 % [facility] Eosinophils/100 WBC (Bld) 1 % 0.9 - 7.0 % [facility] Erythrocyte distribution width (RBC) [Ratio] 12 % 11.0 - 15.0 % [facility] Hematocrit (Bld) [Volume fraction] 41.7 % 36.0 - 48.0 % [facility] Hem[facility] (Bld) [Mass/Vol] 14.1 g/dL 12.0 - 16.0 g/dL [facility] IMMATURE GRANULOCYTES ABS AUTO 0.01 [facility] Immature granulocytes/100 WBC (Bld) 0.2 % 0.0 - 0.5 % [facility] Interpretation and review of laboratory results Abnormal [facility] LYMPHOCYTES ABSOLUTE AUTO 1.9 [facility] Lymphocytes/100 WBC (Bld) 30.2 % 20.5 - 60.0 % [facility] MCH (RBC) [Entitic mass] 28.3 pg 26.7 - 34.0 pg [facility] MCHC (RBC) [Mass/Vol] 33.8 g/dL 29.9 - 35.2 g/dL [facility] MCV (RBC) [Entitic vol] 83.6 fL 81.0 - 99.0 fL [facility] MONOCYTES ABSOLUTE AUTO 0.3 [facility] Monocytes/100 WBC (Bld) 5.5 % 1.7 - 12.0 % [facility] NEUTROPHILS ABSOLUTE AUTO 3.9 [facility] Neutrophils/100 WBC (Bld) 62.8 % 43.0 - 75.0 % [facility] Platelet mean volume (Bld) [Entitic vol] 7.9 fL Low 9.5 - 13.5 fL [facility] EO # 0.1 [facility] PLT 383 [facility] TB RBC 4.99 [facility] TBH WBC 6.2 [facility]ISYNC [facility] e US PELVIC COMPLETE W/ TVon 0 - US PELVIC COMPLETE W/ TV EXAM: Pelvic [...] report is generated using voice recognition reporting ([employer]). On occasion [employer] erroneously drops words from the report or replaces the spoken word with similar sounding words. Please call with any questions/concerns regarding this report.* Dictated and transcribed 09/25/2023/jf This report has been electronically signed and approved by the interpreting radiologist. Electronically Signed Jason Randolph D.O. 2023-09-25 15:57:16 Normal Not Available HCG,Urineon 03-16-2023 Beta HCG ( test) Ql (U) Negative Normal [facility] Comment on above: Result Comment: PERF ORMED BY: [place] [address] PATHOLOGIST ACID TANK LINER DANNY OBRIEN M.D. Performed By: #### U HCG #### [address] Matthew 03-16-2023 L Specimen: [id number] Received: 03/16/23 Status: MARTHA Mead Num: [id number] Spec Type: Surgical Subm Dr: Sj Villa MD Tissues: A Colon Biopsy (RANDOM COLON BX) Procedures: HE/2, Gross/Micro L4 Age/ Patient Sex Location Account Attending Physician Kimberly Severino / [id number] Sj Villa MD SPEC NUM: [id number] RECD: 03/16/23 STATUS: MARTHA LEE NUM: [id number] SELENE: 03/16/23- SUBM DR: Sj Villa MD ENTERED: 03/16/[address] [facility] [address]: SPEC TYPE: Surgical DEPT: S [...] in one cassette labeled A1. CPT Codes 02133 -------- -------- Specimen: [id number] Received: 03/16/23-1221 Status: MARTHA Mead Num: [id number] Spec Type: Surgical Subm Dr: Sj Villa MD Tissues: A Colon Biopsy (RANDOM COLON BX) Procedures: HE/[place] Gong/Flavio L4 -------- Patient: Kimberly Severino [id number] (Continued) -------- Signed (signature on file) Ana Moore MD 03/20/23 1050 Normal [facility] Calprotectin, Fecalon 2023 Calprotectin, Fecal 33 Normal 0-120 [facility] Comment on above: Order Comment: Reaso n for Exam Irritable bowel syndrome with constipation Result Comment: Conc entration Interpretation Follow-Up < 5 - 50 ug/g Normal None >50 -120 ug/g Borderline Re-evaluate in 4-6 weeks >120 ug/g Abnormal Repeat as clinically indicated Performed at: - [facility] [id number] Card Tape Converter Operator: Charles Villarreal MD, Phone: [phone] PERFORMED BY: [place] [address] PATHOLOGIST ACID TANK LINER DANNY OBRIEN M.D. Performed By: #### T SH3 #### [facility] [address] [place] [address] #### CALPROTECT, LC CRP, CELIAC #### [facility] , Celiacon 03-11-2023 Deamidated Gliadin Abs, IgA 8 Normal 0-19 [facility] Comment on above: Order Comment: Reaso n for Exam Irritable bowel syndrome with constipation Result Comment: Nega tive 0 - 19 Weak Positive 20 - 30 Moderate to Strong Positive >30 Performed By: #### T SH3 #### [address] #### CALPROTECT, LC CRP, CELIAC #### [facility] , Deamidated Gliadin Abs, IgG 3 Normal 0-19 [facility] Comment on above: Order Comment: Reaso n for Exam Irritable bowel syndrome with constipation Result Comment: Nega tive 0 - 19 Weak Positive 20 - 30 Moderate to Strong Positive >30 Performed By: #### T SH3 #### [facility] [address] [place] [address] [place] #### CALPROTECT, LC CRP, CELIAC #### [facility] , Endomysial Antibody IgA Negative Normal Negative [facility] Comment on above: Order Comment: Reaso n for Exam Irritable bowel syndrome with constipation Performed By: #### T SH3 #### [address] #### CALPROTECT, LC CRP, CELIAC #### [facility] , Immunoglobulin A, Qn, Serum 133 mg/dL Normal 87-352 [facility] Comment on above: Order Comment: Reaso n for Exam Irritable bowel syndrome with constipation Result Comment: Perf ormed at: - [facility] [place] [id number] Card Tape Converter Operator: Brian Maguire PhD, Phone: [phone] Performed By: #### T SH3 #### [address] #### CALPROTECT, LC CRP, CELIAC #### [facility] , T-Transglutaminase (tTG) IgA <2 Normal 0-3 [facility] Comment on above: [...] enteropathy. Performed By: #### T SH3 #### [address] #### CALPROTECT, LC CRP, CELIAC #### [facility] , T-Transglutaminase (tTG) IgG 3 Normal 0-5 [facility] Comment on above: Order Comment: Reaso n for Exam Irritable bowel syndrome with constipation Result Comment: Nega tive 0 - 5 Weak Positive 6 - 9 Positive >9 Performed By: #### T SH3 #### [facility] [address] [place] [address] [place] #### CALPROTECT, LC CRP, CELIAC #### [facility] , Lab Emiliano CRPon 03-11-2023 LC CRP, Quant 5 mg/L Normal 0-10 [facility] Comment on above: Order Comment: Reaso n for Exam Irritable bowel syndrome with constipation Result Comment: Perf ormed at: - [facility] [address] [id number] Card Tape Converter Operator: Brian Maguire PhD, Phone: [phone] PERFORMED BY: [place] [address] PATHOLOGIST ACID TANK LINER DANNY OBRIEN M.D. Performed By: #### T SH3 #### [place] [address] [place] #### CALPROTECT, LC CRP, CELIAC #### [facility] , Thyrotropin [Units/volume] i n Serum or PlasmaOrdered By: Sj Villa on 03-11-2023 TSH Qn 0.80 m[IU]/L Normal 0.45-5.33 [facility] Comment on above: Order Comment: Reaso n for Exam Irritable bowel syndrome with constipation Result Comment: PERF ORMED BY: [place] [address] PATHOLOGIST ACID TANK LINER DANNY OBRIEN M.D. Performed By: #### T SH3 #### [facility] [address] [place] [address] [place] #### CALPROTECT, LC CRP, CELIAC #### [facility] , XR Abdomen 2 Viewson 023 XR Abdomen 2 Views HISTORY: Abdominal pain, intermittent constipation FINDINGS: Large volume of colon stool, ascending, descending and sigmoid region. No mass effect or bowel obstruction. Cholecystectomy clips Unremarkable skeletal structures. IMPRESSION: 1. Large volume of colon stool, no obstruction or mass effect. Report reported and signed by Selvin Parish on 02/24/2022 1156 Normal [facility] HCG ( test) Mohini mendez Ql (U)Ordered By: Dino Arreguin on 10-12-2021 HCG ( test) Ql (U) Negative [facility] Serum or plasma alkaline adan sphatase measurement (enzymatic activity/volume)Ordered By: Ming Bradford on 10-12-2021 ALP [Catalytic activity/Vol] 60 U/L 32-92 [facility] Serum or plasma amylase alcon urement (enzymatic activity/volume)Ordered By: Ming Bradford on 10-12-2021 Amylase [Catalytic activity/Vol] 83 U/L 28-100 [facility] Serum or plasma total biliru bin measurement (mass/volume)Ordered By: Ming Bradford on 10-12-2021 Bilirubin [Mass/Vol] 0.4 mg/dL 0.3-1.2 [facility] COVID-19 Positive/NegativeOr dered By: Ming Bradford on 10-08-2021 SARS-CoV-2 (COVID-19) N gene MAME+probe Ql (Resp) Negative Negative [facility] Comment on above: Testing for SARS-CoV -2 by RT-PCR This test was developed and its performance characteristics determined by [employer] [place] [employer] and validated at the [facility]. This test has not been FDA [...] by Selvin Parish on 08/27/2021 0934 Normal [facility] Q - STREPTOCOCCUS,GROUP B CU LTUREon 05-19-2021 STREPTOCOCCUS, GROUP B CULTURE SEE NOTE Normal [facility] Comment on above: Order Comment: [facility] performed at: [employer] [employer] [facility], [address], [address] [place], [address], Law Office Receptionist: Freddie Burgess MD [facility] Collection Date/Time: [id number] [facility] Results Received Date/Time: [facility] Reported Date/Time: [id number] FASTING: NO Result Comment: STRE PTOCOCCUS, GROUP B CULTURE Micro Number: [id number] Test Status: Final Specimen Source: Vaginal/rectal Specimen Quality: Adequate Result: No group B Streptococcus isolated Note per CDC guidelines optimal recovery is achieved by swabbing both the lower vagina and rectum (through the anal sphincter). Performed By: #### 5 [id number] #### [facility] [address] [place] [address] US OB Growthon 04-07-2021 US OB Growth [...] Placenta Posterior Grade I Weight (g) by Pcfbzoyhro01.7 % * These measurements result in an [...] by Selvin Parish on 04/08/2021 1117 Normal [facility] Specialist Glucose Tolerance Test 3 Ani ramos 04-02-2021 FGLU 82 mg/dL Normal 65-99 [facility] Comment on above: Result Comment: Acco rding to ADA: Fasting Glucoe Normal 65-99 mg/dl Prediabetes 100-125 mg/dl Diabetes >/= 126 Performed By: #### G TT3H #### [facility] [address] [place], [place] [id number] GLU1H 163 mg/dL Normal [facility] Specialist Comment on above: Performed By: #### G TT3H #### [facility] [address] [place], [place] [id number] GLU2H 112 mg/dL Normal [facility] Specialist Comment on above: Performed By: #### G TT3H #### [facility] [address] [place], [place] [id number] GLU3H 115 mg/dL Normal [facility] Comment on above: Performed By: #### G TT3H #### [facility] [address] [place], [place] [id number] Complete Blood Counton 03-31 Erythrocyte distribution width (RBC) [Ratio] 12.9 % Normal 11.0-15.0 [facility] Specialist Comment on above: Performed By: #### G GLU, CBC #### [facility] [address] [place], [place] [id number] Hematocrit (Bld) [Volume fraction] 35.5 % Normal 35.0-47.0 [facility] Specialist Comment on above: Performed By: #### G GLU, CBC #### [facility] [address] [place], [place] [id number] Hemoglobin (Bld) [Mass/Vol] 11.8 g/dL Normal 11.6-15.5 [facility] Specialist Comment on above: Performed By: #### G GLU, CBC #### [facility] [address] [place], [place] [id number] MCH (RBC) [Entitic mass] 27.8 pg Normal 27.0-33.0 [facility] Specialist Comment on above: Performed By: #### G GLU, CBC #### [facility] [address] [place], [place] [id number] MCHC (RBC) [Mass/Vol] 33.2 g/dL Normal 32.0-36.0 [facility] Comment on above: Performed By: #### G GLU, CBC #### [facility] [address] [place], [place] [id number] MCV (RBC) [Entitic vol] 84 fL Normal 80-100 [facility] Comment on above: Performed By: #### G GLU, CBC #### [facility] [address] [place], [place] [id number] Platelet mean volume (Bld) [Entitic vol] 8.60 fL Normal 7.50-12.50 [facility] Comment on above: Performed By: #### G GLU, CBC #### [facility] [address] [place], [place] [id number] Platelets (Bld) [#/Vol] 315 10*3/uL Normal 140-400 [facility] Comment on above: Performed By: #### G GLU, CBC #### [facility] [address] [place], [place] [id number] RBC (Bld) [#/Vol] 4.24 10*6/uL Normal 3.90-5.20 [facility] Comment on above: Performed By: #### G GLU, CBC #### [facility] [address] [place], [place] [id number] RDW-SD 38.8 fL Normal 37.0-50.0 [facility] Comment on above: Performed By: #### G GLU, CBC #### [facility] [address] [place], [place] [id number] WBC (Bld) [#/Vol] 9.1 10*3/uL Normal 3.8-11.0 [facility] Specialist Comment on above: Performed By: #### G GLU, CBC #### [facility] [address] [place], [place] [id number] Glucose - Gestational Screen on 03-31-2021 Glucose [Mass/Vol] 161 mg/dL High <135 [facility] Comment on above: Result Comment: A va lue of 135 mg/dL or greater indicates the need for a full glucose tolerance test performed in the fasting state to determine if the patient has gestational diabetes. Performed By: #### G GLU, CBC #### [facility] [address] [place], [place] [id number] COVID-19 PCRon 09-25-2019 SARS-CoV-2, MAME Not Detected Normal Not Detected [facility] Comment on above: Result Comment: This test was developed and its performance characteristics determined by [employer]. This test has not been FDA cleared [...] assay. Performed By: #### C VDPCR #### [facility] [address] [place], [place] [address] Luz Sharmaen Vital Signs Date Time Vital Sign Value Performing Clinician Facility 12-18-2023 09:22-0500 Body mass index (BMI) [Ratio] 28.92 kg/m2 [employer] Work Phone: [facility] 12-18-2023 09:22-050 Body weight 78.83 kg Lindy [employer] Work Phone: [facility] 12-18-2023 09:22-0500 Diastolic blood pressure 66 mm[Hg] Lindy [employer] Work Phone: [facility] 12-18-2023 09:22-0500 Systolic blood pressure 102 mm[Hg] Lindy Bynum DO Work Phone: [facility] 12-13-2023 13:03-0400 Body height 165.1 cm Ashlee Courtney LENS ASSISTANT Work Phone: [facility] 12-13-2023 13:03-0400 Body mass index (BMI) [Ratio] 28.46 kg/m2 Ashlee Courtney LENS ASSISTANT Work Phone: [facility] 12-13-2023 13:03-0400 Body weight 77.56 kg Ashlee Courtney LENS ASSISTANT Work Phone: [facility] 12-13-2023 13:03-0400 Diastolic blood pressure 70 mm[Hg] Ashlee Courtney LENS ASSISTANT Work Phone: [facility] 12-13-2023 13:03-0400 Heart rate 95 /min Ashlee Courtney LENS ASSISTANT Work Phone: [facility] 12-13-2023 13:03-0400 SaO2% (BldA) [Mass fraction] 98 % Ashlee Courtney LENS ASSISTANT Work Phone: [facility] 12-13-2023 13:03-0400 Systolic blood pressure 112 mm[Hg] Ashlee Courtney LENS ASSISTANT Work Phone: [facility] 02-15-2023 15:15-0500 Body height 162.56 cm Imad Asaad Other [facility] Other 02-15-2023 15:15-0500 Body mass index (BMI) [Ratio] 29.95 kg/m2 Imad Asaad Other [facility] Other 02-15-2023 15:15-0500 Body weight 79.15 kg Imad Asaad Other [facility] Other 02-15-2023 15:15-0500 Diastolic blood pressure 81 mm[Hg] Imad Asaad Other [facility] Other 02-15-2023 15:15-0500 Systolic blood pressure 114 mm[Hg] Imad Asaad Other [facility] [employer] Other 10-12-2021 15:00-0400 Diastolic blood pressure 80 mm[Hg] DO Ming Itzkowitz Work Phone: [facility] 10-12-2021 15:00-0400 Heart rate 74 /min DO Ming Itzkowitz Work Phone: [facility] 10-12-2021 15:00-0400 Respiratory rate 16 /min DO Ming Itzkowitz Work Phone: [facility] 10-12-2021 15:00-0400 SaO2% (BldA) [Mass fraction] 98 % DO Ming Itzkowitz Work Phone: [facility] 10-12-2021 15:00-0400 Systolic blood pressure 119 mm[Hg] DO Ming Itzkowitz Work Phone: [facility] 10-12-2021 13:17-0400 Body temperature 97.6 [degF] DO Ming Itzkowitz Work Phone: [facility] 10-12-2021 13:17-0400 Inhaled oxygen flow rate 6 L/min DO Ming Itzkowitz Work Phone: [facility] 10-12-2021 12:19-0400 Body height 162.56 cm DO Ming Itzkowitz Work Phone: [facility] 10-12-2021 12:19-0400 Body mass index (BMI) [Ratio] 29.3 kg/m2 DO Ming Itzkowitz Work Phone: [facility] 10-12-2021 12:19-0400 Body weight 77.56 kg DO Ming Itzkowitz Work Phone: [facility] Encounters Encounter Date Encounter Type Care Provider Facility Start: 01-15-2024 End: 01-15-2024 Bamboo flowsheet Lindy Misa DO Work Phone: [facility] Start: 01-15-2024 End: 01-15-2024 Bamboo flowsheet Lindy Misa DO Work Phone: [facility] Start: 01-04-2024 End: 01-04-2024 Clinisync Result Encounter Generic External Data Provider [facility] Unsolicited Start: 01-04-2024 End: 01-04-2024 Clinisync Result Encounter Generic External Data Provider [facility] External [facility] Unsolicited Start: 01-04-2024 End: 01-04-2024 ambulatory Lindy Misa Facility:[facility] Start: 12-20-2023 End: 12-20-2023 Emergency department patient visit ROSIBEL Raymond FRANC [facility] Start: 12-18-2023 End: 12-18-2023 Bamboo flowsheet Lindy Misa DO Work Phone: [facility] Start: 12-18-2023 End: 12-18-2023 Bamboo flowsheet Lindy Misa DO Work Phone: [facility] Start: 12-18-2023 End: 12-18-2023 Office outpatient visit 15 minutes Lindy Misa DO Work Phone: [facility] Comment on above: Pre-op examination; Uterine leiomyoma, unspecified location; Dysmenorrhea Start: 12-18-2023 End: 12-18-2023 Preprocedural examination done Lindy Misa DO Work Phone: [facility] Start: 12-18-2023 End: 12-18-2023 ambulatory LINDY MISA Not Available Start: 12-13-2023 End: 12-13-2023 Office outpatient visit 25 minutes Ashlee Courtney NP Work Phone: [facility] Comment on above: Gastroesophageal ref lux disease without esophagitis (Primary Dx); Encounter for immunization Start: 12-13-2023 End: 12-13-2023 ambulatory ASHLEE COURTNEY Not Available Start: 10-09-2023 End: 10-09-2023 ambulatory LINDY BYNUM Not Available Start: 09-25-2023 End: 09-25-2023 ambulatory LUIS ENRIQUE BHAT Not Available Start: 09-20-2023 End: 09-20-2023 ambulatory LUIS ENRIQUE BHAT Not Available Start: 07-11-2023 End: 07-11-2023 ambulatory PETRA JOHNSONZPATRICK Not Available Start: 06-28-2023 End: 06-28-2023 ambulatory PETRA A GABI Not Available Start: 03-16-2023 End: 03-16-2023 ambulatory Imad Asaad Facility:[facility] Start: 03-11-2023 End: 03-11-2023 Patient encounter procedure MD Rosibel Bruner Work Phone: [facility] [place] Work Phone: Start: 03-11-2023 End: 03-11-2023 ambulatory MD Rosibel Bruner Work Phone: [facility] Work Phone: Start: 02-15-2023 End: 02-15-2023 ambulatory Imad Asaad Other [facility] Other Start: 02-15-2023 FQ visit new patient Imad Asaad [facility] Start: 02-15-2023 End: 02-15-2023 Patient encounter procedure MD Rosibel Bruner Work Phone: [facility] Work Phone: Start: 10-12-2021 End: 10-12-2021 Admission to same day surgery center DO Ming Bradford Work Phone: [facility] [place] Start: 10-08-2021 End: 10-08-2021 Patient encounter procedure DO Ming Bradford Work Phone: [facility] Start: 09-28-2021 End: 09-28-2021 Departed Referred DO Ming Bradford Work Phone: [facility] Start: 09-24-2019 End: 09-25-2019 Patient encounter procedure CHERYL HERNANDEZ Facility:[facility] Procedures Date Procedure Procedure Detail Performing Clinician Start: 01-04-2024 ALL CBC WITH AUTO DIFF Lindy Misa DO Work Phone: Start: 08-15-2022 Microscopic observat ion [Identifier] in Cervix by Cyto stain Ashlee Courtney NP Work Phone: Start: 10-12-2021 Laparoscopic cholecystectomy DO Ming Bradford Work Phone: Plan of Treatment Date Care Activity Detail Author Start: 08-16-2027 Screening for malign ant neoplasm of cervix [facility] Start: 01-15-2024 End: 01-15-2024 Patient encounter procedure [facility] Comment on above: Arrived Start: 12-18-2023 End: 12-18-2023 Patient encounter procedure [facility] Comment on above: Pre-op examination; Uterine leiomyoma, unspecified location; Dysmenorrhea Start: 03-11-2023 [facility] Start: 10-12-2021 [facility] Work Phone: Start: 10-12-2021 [facility] Work Phone: Start: 10-12-2021 Laparoscopic cholecystectomy OR Cholecystectomy Laparoscopic (Not Applicable) [facility] Start: 10-12-2021 End: 10-12-2021 Admission to same day surgery center Departed Surgical Day Care [facility] [place] C reactive protein [Mass/volume] in Serum or Plasma [facility] Endomysial antibody IgA level [facility] Gliadin peptide IgA Ab [Units/volume] in Serum [facility] Gliadin peptide IgG Ab [Units/volume] in Serum [facility] IgA [Mass/volume] in Serum or Plasma [facility] Patient referral [facility] Work Phone: Tissue transglutamin ase IgA Ab [Units/volume] in Serum [facility] Tissue transglutamin ase IgG Ab [Units/volume] in Serum [facility] Immunizations Immunization Date Immunization Notes Care Provider Malinda tatum 12-13-2023 influenza, seasonal, injectable, preservative free Ashlee Kampfer LENS ASSISTANT Work Phone: [facility] 11-15-2021 influenza, injectabl e, quadrivalent, preservative free Ashlee Kampfer LENS ASSISTANT Work Phone: [facility] 03-02-2021 tetanus toxoid, redu kelly diphtheria toxoid, and acellular pertussis vaccine, adsorbed Ashlee Kampfer LENS ASSISTANT Work Phone: [facility] 01-14-2021 COVID-19 mRNA, Comirnaty (Pfizer) DO Ming [employer] Work Phone: [facility] 12-10-2020 influenza, injectabl e, quadrivalent, preservative free Ashlee Kampfer LENS ASSISTANT Work Phone: [facility] 06-02-2020 COVID-19 mRNA, Comirnaty (Pfizer) DO [employer] Work Phone: [facility] 05-12-2020 COVID-19 mRNA, Comirnaty (Pfizer) DO [employer] Work Phone: [facility] 11-27-2019 influenza, injectabl e, quadrivalent, preservative free Ashlee Kampfer LENS ASSISTANT Work Phone: [facility] 12-03-2018 tetanus toxoid, redu kelly diphtheria toxoid, and acellular pertussis vaccine, adsorbed Ashlee Kampfer LENS ASSISTANT Work Phone: [facility] 11-13-2018 influenza, injectabl e, quadrivalent, contains preservative Ashlee Kampfer LENS ASSISTANT Work Phone: [facility] 11-20-2015 influenza, injectabl e, quadrivalent, preservative free Ashlee Courtney LENS ASSISTANT Work Phone: [facility] 12-22-2014 influenza, seasonal, injectable, preservative free Ashlee Chengpfer LENS ASSISTANT Work Phone: [facility] 11-21-2013 influenza, seasonal, injectable, preservative free Ashlee Chengpfer LENS ASSISTANT Work Phone: [facility] 11-23-2012 influenza, seasonal, injectable, preservative free Ashlee Chengpfer LENS ASSISTANT Work Phone: [facility] 11-17-2011 influenza, seasonal, injectable, preservative free Ashlee Chengpfer LENS ASSISTANT Work Phone: [facility] 11-22-2010 influenza virus vaccine, whole virus Ashlee Courtney LENS ASSISTANT Work Phone: [facility] 08-25-2010 diphtheria, tetanus toxoids and acellular pertussis vaccine Ashlee Chengpfer LENS ASSISTANT Work Phone: [facility] 08-25-2010 tetanus toxoid, redu kelly diphtheria toxoid, and acellular pertussis vaccine, adsorbed Ashleebety Chengpfer LENS ASSISTANT Work Phone: [facility] 02-09-2009 HPV, unspecified formulation Ashlee Chengpfer LENS ASSISTANT Work Phone: [facility] 10-10-2008 HPV, unspecified formulation Ashlee Chengpfer LENS ASSISTANT Work Phone: [facility] 08-11-2008 HPV, unspecified formulation Ashlee Chengpfer LENS ASSISTANT Work Phone: [facility] 08-31-2007 meningococcal ACWY vaccine, unspecified formulation Ashlee Chengpfer LENS ASSISTANT Work Phone: [facility] 09-19-2005 diphtheria, tetanus toxoids and pertussis vaccine Ashlee Chengpfer LENS ASSISTANT Work Phone: [facility] 07-15-1997 diphtheria, tetanus toxoids and pertussis vaccine Ashlee Chengpfer LENS ASSISTANT Work Phone: [facility] 07-15-1997 measles, mumps and rubella virus vaccine Ashlee Kampfer LENS ASSISTANT Work Phone: [facility] 07-15-1997 poliovirus vaccine, unspecified formulation Ashlee Courtney LENS ASSISTANT Work Phone: [facility] 07-15-1997 varicella virus vaccine Vicki Courtney LENS ASSISTANT Work Phone: [facility] 11-05-1993 diphtheria, tetanus toxoids and pertussis vaccine Ashlee Courtney LENS ASSISTANT Work Phone: [facility] 11-05-1993 poliovirus vaccine, unspecified formulation Ashlee Courtney LENS ASSISTANT Work Phone: [facility] 06-11-1993 haemophilus influenz ae type b vaccine, conjugate unspecified formulation Ashlee Courtney LENS ASSISTANT Work Phone: [facility] 06-11-1993 measles, mumps and rubella virus vaccine Ashlee Courtney LENS ASSISTANT Work Phone: [facility] 1992 hepatitis B vaccine, pediatric or pediatric/adolescent dosage Ashlee Courtney LENS ASSISTANT Work Phone: [facility] 1992 diphtheria, tetanus toxoids and pertussis vaccine Ashlee Courtney LENS ASSISTANT Work Phone: [facility] 1992 haemophilus influenz ae type b vaccine, conjugate unspecified formulation Ashlee Courtney LENS ASSISTANT Work Phone: [facility] 1992 diphtheria, tetanus toxoids and pertussis vaccine Ashlee Courtney LENS ASSISTANT Work Phone: [facility] 1992 haemophilus influenz ae type b vaccine, conjugate unspecified formulation Ashlee Courtney LENS ASSISTANT Work Phone: [facility] 1992 hepatitis B vaccine, pediatric or pediatric/adolescent dosage Ashlee Courtney LENS ASSISTANT Work Phone: [facility] 1992 poliovirus vaccine, unspecified formulation Ashlee Courtney LENS ASSISTANT Work Phone: [facility] 1992 diphtheria, tetanus toxoids and pertussis vaccine Ashlee Courtney LENS ASSISTANT Work Phone: [facility] 1992 haemophilus influenz ae type b vaccine, conjugate unspecified formulation Ashlee Chengjovanileonard LENS ASSISTANT Work Phone: [facility] 1992 hepatitis B vaccine, pediatric or pediatric/adolescent dosage Ashlee Chengjovanileonard LENS ASSISTANT Work Phone: [facility] 1992 poliovirus vaccine, unspecified formulation Ashlee Courtney LENS ASSISTANT Work Phone: [facility] Healthcare Payers Date Payer Category Payer Unknown [id number] 2023 Self-pay 2022 Private Health Insurance [employer] Member Subscriber Plan / Payer (Effective 2022-Present) Name: Maycol Kimberly N Relation to Subscriber: Self Name: Kimberly Severino Payer ID: Not on file Type: Not on file Address: [place] [id number] 2022 Unknown [id number] 1992 Unknown [id number]. 593 1992 Unknown [id number] [id number]. 1258 1992 Unknown [id number] [id number]. 9 1992 Unknown [id number] [id number]. 9 1992 Unknown [id number] [id number]. 9 1992 Unknown [id number] [id number]. 9 1992 Unknown [id number] [id number]. 1259 1992 Unknown [id number] 2.16.840.1.999975.3.579.2. 1259 1992 Unknown [id number] [id number]. 1286 1959 Unknown [id number] Unknown Nelson / [id number] Unknown [id number] [id number]. 531 Unknown [id number] [id number]. 531 Unknown [id number]. 531 Social History Date Type Detail Facility Start: 10-12-2021 End: 07-28-2022 Tobacco smoking status SDIS Never smoked tobacco (finding) [facility] Start: 1990 Sex Assigned At Female F [facility] Start: 07-11-2023 End: 12-13-2023 Sex Assigned At [facility] Start: 07-28-2022 Tobacco use and exposure Smokeless tobacco non-user [facility] Start: 12-13-2023 Alcoholic beverage intake Current drinker of alcohol (finding) [facility] Start: 07-11-2023 End: 12-13-2023 Alcoholic beverage intake [facility] Do you belong to any clubs or organizations such as orthodox groups, unions, fraternal or athletic groups, or [...] gender (finding) [facility] NEGATED: Highlighted rowStart: NINF History of tobacco use Passive smoker [facility] Goals Date Patient Goal Desired Activity /State History of Present illness Narrative 12-18-2023 Valentina Cagle - 12/18/2023 9:20 AM EST Note Date & Type Note Facility 12-18-2023 History of Presen t illness Narrative Reason for Appointment: Patient ID: Kimberly Severino is a 33 y.o. female who presents for Pre-op Visit Patient presents today for Pre Op appointment. Patient is scheduled to undergo D&C Hysteroscopy, possible Myosure on 01/04/[address] Bynum at [facility] MEDICATIONS Current Outpatient Medications Medication Instructions albuterol [...] constipation 06/28/2023 Mild intermittent asthma without complication ([facility]/HCC) 06/28/2023 Viral upper respiratory illness 06/28/2023 Resolved Ambulatory Problems Diagnosis Date Noted No Resolved Ambulatory Problems Past Medical History: Diagnosis Date Asthma (CMS/HCC) Cholelithiasis Family history of cancer Headache HISTORY PAST MEDICAL HISTORY SOCIAL HISTORY Past Medical History: Diagnosis Date Asthma ([facility]) Cholelithiasis Family history of cancer Headache Social [...] SECTION, LOW TRANSVERSE 06/11/2021 PAP SMEAR 11/2016 [place] LAP,CHOLECYSTECTOMY 10/12/2021 TONSILLECTOMY WISDOM TOOTH EXTRACTION 2012 [...] nursing note reviewed. Exam conducted with a linux system administrator present. Vitals: Estimated body mass index is [...] reviewed, and patient is to proceed to [facility] OR. Follow Up: Patient is to follow up between 1-2 weeks post operative to assess proper healing and recovery from procedure. Documented by Sondra Pringle LPN on behalf of: Lindy Bynum DO documented in this encounter [facility] History of Present illness Narrative 12-13-2023 Ashlee Courtney NP - 12/13/2023 1:00 PM EDT Note Date & Type Note Facility 12-13-2023 History of Presen t illness Narrative Images from the original note were not included. Kimberly Severino is a 33 y.o. female presents with [...] for a few months. She reports that vrim-uth-zlsxdpm antacids like Tums provide some relief but do not completely alleviate her symptoms. She is currently on a 20 mg dose of Prilosec. She has tried other iqui-zmu-gapgppv medications, including Prevacid and Tagamet, the latter [...] PF IM (IMM19) documented in this encounter [facility] Healthcare Evaluation note 02-15-2023 Note Date & Type Note Facility 02-15-2023 Evaluation note Encounter Date Diagnosis Assessment Notes Feb, Irritable bowel syndrome with constipation (ICD-10 - K58.1) Feb, Abdominal pain (ICD-10 - R10.9) [facility] Other Evaluation note Note Date & Type Note Facility Evaluation note No assessment information availa [facility] Work Phone: Evaluation note Note Date & Type Note Facility Evaluation note Diagnosis Gastroesophageal reflux disease without esophagitis- Primary Esophageal reflux Encounter for immunization documented in this encounter [facility] Evaluation note Note Date & Type Note Facility Evaluation note Diagnosis Pre-op examination Uterine leiomyoma, unspecified location Dysmenorrhea documented in this encounter [facility] History general Narrative - Reported Note Date & Type Note Facility History general Narrative - Reported Type Surgical History gallbladder removal Surgical History C section Hospitalization History see above [facility] Other Summary Purpose Family History Relationship Condition Age at Onset Recorded Date/T elena father Sleep apnea Unknown History of colon surgery Unknown Diverticulitis Unknown Presence of colostomy Unknown Not Specified Gastroesophageal reflux disease Unknown Hypertension Unknown brother Asthma Unknown Advance Directives Advance Directive Response Recorded Date/ Time Advance Directives No September 21 12:20pm Advance Directive Response Recorded Date/ Time Advance Directives No September 21 11:20am Chief Complaint and Reason for Visit Chief Complaint Cholelithiasis Cholelithiasis Cholelithiasis Chief Complaint Ibs-C//Abd Pain//Ref Rosibel Bruner k58.1 Additional Source Comments INFORMATION SOURCE (unrecogn ized section and content) DATE CREATED AUTHOR 10/02/2019 [facility] DATE CREATED AUTHOR AUTHOR'S ORGANIZ ATION 02/24/2022 [facility] DATE CREATED AUTHOR AUTHOR'S ORGANIZ ATION 12/19/2023 [facility] EPIC DATE CREATED AUTHOR AUTHOR'S ORGANIZ ATION 12/22/2023 [facility] DATE CREATED AUTHOR AUTHOR'S ORGANIZ ATION 01/08/2024 [facility] Care Teams (unrecognized sec tion and content) [...] March 11, 2023 End: March 11, 2023 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 Relationship Specialty Start Date End Date Rosibel Bruner MD [address] [place] [address] PCP - General Family Medicine 07/28/22 Petra Mariee NP [address] [place] [address] PCP - Medical [employer] 10/14/22 02/12/99 Luis Enrique Bhat CNM [address] [place] [address] Obstetrics and Gynecology 07/28/22 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 Relationship Specialty Start Date End Date Rosibel Bruner MD [address] [place] [address] PCP - General Family Medicine 07/28/22 Petra Mariee NP [address] [place] [address] PCP - Medical [employer] 10/14/22 02/12/99 Luis Enrique Bhat CNM [address] [place] [address] Obstetrics and Gynecology 07/28/22 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 Relationship Specialty Start Date End Date Rosibel Bruenr MD [address] [place] [address] PCP - General Family Medicine 07/28/22 Petra Mariee NP [address] [place] [address] PCP - Medical [employer] 10/14/22 02/12/99 Luis Enrique Bhat CNM [address] [place] [address] Obstetrics and Gynecology 07/28/22 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 [employer] [facility]. provides no warranty or guarantee of the accuracy or completeness of information in this document.
== END 2024-01-15 20:09 | disposition home or self-care (01) ==
LOC: LAB 20:08
PROVIDERS: PCP Family Medicine; Visit Provider Obstetrics & Gynecology
DX: Z01.419 Encounter for gynecological examination (general) (routine) without abnormal findings (principal)
CPT/HCPCS: 87624; 88175